=== PATIENT | male | born 1960 | race Caucasian/White ===

== ENCOUNTER 2023-04-02 13:43 | Outpatient (CLI) | payer MEDICARE, SELFPAY ==
--- NOTE | ~2023-04-02 | CT_ITS ---
CT Scan of the Chest without Contrast: Clinical Indication: Lung cancer screening, personal history of nicotine dependence Technique: Contiguous sections were acquired throughout the chest without intravenous contrast. Dose reduction technique was used on this scan by utilizing automated exposure control and iterative recon struction technique. The dose-length product (DLP) was 79.95 mGy-cm. Findings: There is no evidence of any significant mediastinal, hilar or axillary lymphadenopathy. There are mil d coronary artery calcifications. There is no evidence of pleural or pericardial effusion. 2 mm right lower lobe pulmonary nodule present. Images through the upper abdomen reveal no abnormalit ies. There is a prominent left flank lipoma. Impression: Lung RADS 2: Benign appearance. 12 month follow-up screening CT advised. Reviewed, dictated and finalized at location . Impression: Lung RADS 2: Benign appearance. 12 month follow-up screening CT advised.
== END 2023-04-02 13:44 | disposition home or self-care (01) ==
PROVIDERS: PCP Nurse Practitioner Family; Visit Provider Nurse Practitioner Family
DX: Z12.2 Encounter for screening for malignant neoplasm of respiratory organs (principal); Z87.891 Personal history of nicotine dependence
CPT/HCPCS: 71271

== ENCOUNTER 2024-12-07 08:09 | Outpatient (CLI) | payer MEDICARE, SELFPAY ==
--- NOTE | ~2024-12-07 | NM_ITS ---
EXAMINATION: NM emerson stress w perfusion DATE: 12/07/2024 12:16 INDICATION: Chest pain TECHNIQUE: Rest images were obtained following intravenous administration of 11 mCi Tc99m tetrofosmin (Myoview). The patient was infused intravenously with Lexiscan (Regadenoson). Then, 34.6 mCi Tc99m t etrofosmin (Myoview) was administered intravenously, and stress images were obtained initially in the supine position with repeat post stress images obtained in the prone position. Data was reconstructe d into short axis and horizontal and vertical long axis SPECT images. Gated SPECT images were also ob tained. COMPARISON: None. FINDINGS: There is a large, moderate to severe fixed perfusion defect consistent with infarct involvi ng the apical, apical lateral, mid inferolateral, apical inferior, mid inferior, apical septal and mi d inferoseptal segments. The apparent reversibility in the mid inferoseptal and mid inferior segments appears artifactual due to adjacent gastric activity. There is normal left ventricular chamber size, wall motion and ejection fraction. Left ventricular ejection fraction measures 53%. IMPRESSION: 1. Large, moderate to severe infarct involving primarily the circumflex and right coronary artery vas cular distributions as detailed above. No definitive reversible ischemia. 2. Left ventricular ejection fraction measuring 53%. Reviewed, dictated and finalized at location A. IMPRESSION: 1. Large, moderate to severe infarct involving primarily the circumflex and rig ht coronary artery vascular distributions as detailed above. No definitive reve rsible ischemia. 2. Left ventricular ejection fraction measuring 53%.
--- OUTSIDE RECORDS SUMMARY | 2024-12-07 08:16 | XMS_ITS | Encounter Summary ---
Author Organization [facility] Address 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 Gender Identity Not on file Sexual Orientation Not on file documented as of this encounter Plan of Treatment Not on file documented as of this encounter Visit Diagnoses Diagnosis Spinal stenosis, unspecified region other than cervical- Primary documented in this encounter Additional Health Concerns Infection Onset Date Last Indicated Resolved Time R/O COVID-19 10/29/2020 10/29/2020 10/29/2020 6:43 AM CDT documented as of this encounter Care Teams Boom Master Relationship Specialty Start Date End Date Christos Estrada MD [address] [place] [phone] PCP - General Family Practice 07/01/23 documented as of this encounter
--- OUTSIDE RECORDS SUMMARY | 2024-12-07 08:16 | XMS_ITS | Encounter Summary ---
Author Organization [facility] Address [address] [place] [address] Care Team Providers Care Supervisor Assembly Name Role Phone Christos Estrada MD Primary Care Provider [phone] Encounter Details Date Type Department Care Team (Late st Contact Info) Description 08/28/2000 Outpatient Historical [facility] Primary Care Internal Medicine 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
--- OUTSIDE RECORDS SUMMARY | 2024-12-07 08:16 | XMS_ITS | Encounter Summary ---
Author Organization [facility] Address [address] [place] [address] Care Team Providers Care Locomotive Crane Operator Helper Name Role Phone Christos Estrada MD Primary Care Provider Encounter Details Date Type Department Care Team (Late st Contact Info) Description 10/23/2000 Outpatient Historical [facility] Primary Care Internal Medicine 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
--- OUTSIDE RECORDS SUMMARY | 2024-12-07 08:16 | XMS_ITS | Clinical Summary ---
Author Organization [facility] Address [address] [place] [phone] Phone Care Team Providers Care Inventory Manager Name Role Phone Christos Estrada MD Primary Care Provider [phone] Allergies No known active allergies Medications aluminum hydroxide-magnesiu m carbonate (Gaviscon Extra Strength) 160-105 mg Tablet, Chewable Take 1-2 Tablets by mouth 4 times daily as needed for Indigestion. 11/06/19 21 Active OneTouch Delica Plus Lancet 33 gauge USE TO CHECK BLOOD SUGAR TWICE DAILY (E11.9) ONE TOUCH DELICA PLUS 07/22/20 22 Active Blood-Glucose Meter (OneTouch Verio Reflect Meter) USE TO TEST BLOOD SUGARS TWICE DAILY 1 Each 08/20/19 23 Active aspirin 81 mg tablet,delayed release Take 81 mg by mouth daily. Active atorvastatin (LIPITOR) 40 mg tabletIndications: Mixed hyperlipidemia TAKE 1 TABLET BY MOUTH EVERYDAY AT BEDTIME 30 Tablet 03/17/20 23 Active omeprazole (PriLOSEC) 20 mg Capsule, Delayed Release(E.C.) Take 1 Capsule (20 mg) by mouth daily. Please call to schedule appointment with New provider prior to next refill. 90 Capsule 03/23/20 23 Active blood sugar diagnostic (OneTouch Verio test strips) Strip Test Blood Sugar Two Times Daily Before Morning Meal And Evening Meal 100 Strip 5 04/27/20 23 Active meloxicam (Mobic) 7.5 mg tabletIndications: Acute right-sided low back pain with right-sided sciatica Take 1 Tablet (7.5 mg) by mouth daily. 28 Tablet 12/23/19 24 Active tiZANidine (ZANAFLEX) 4 mg TabletIndications: Chronic midline low back pain with right-sided sciatica TAKE 1 TABLET (4 MG) BY MOUTH 2 TIMES DAILY 180 Tablet 12/24/19 24 Active traZODone (DESYREL) 50 mg tabletIndications: Primary insomnia take 1 tablet by mouth everyday at bedtime 90 Tablet 1 12/28/19 24 Active DULoxetine (CYMBALTA) 60 mg Capsule, Delayed Release(E.C.)Indic ations:Chronic midline low back pain with right-sided sciatica take 1 capsule by mouth every day 90 Capsule 1 12/28/19 24 Active tamsulosin (FLOMAX) 0.4 mg capsuleIndications :BPH with obstruction/lower urinary tract symptoms take 2 capsules by mouth every day 180 Capsule 1 12/28/19 24 Active metoprolol succinate (TOPROL XL) 50 mg Extended Release 24 hour tabletIndications: Primary hypertension Take 1 Tablet (50 mg) by mouth daily. 90 Tablet 1 12/28/19 24 Active metFORMIN (GLUCOPHAGE) 1,000 mg tabletIndications: Type 2 diabetes mellitus without complication, without long-term current use of insulin ([facility]) take 1 tablet by mouth twice a day with meals 180 Tablet 2 04/08/20 24 Active Active Problems Patient Care Coordination No te Formatting of this note migh t be different from the original. GI- Dr Ángel Mitchell Pilot Plant Technician-Dr Chuck Rothman-[place] Problem Noted Date Diagnosed Date Gastroesophageal reflux disease without esophagi tis 12/30/2023 BPH with obstruction/lower urinary tract symptom s 07/01/2023 Primary insomnia 07/01/2023 Scoliosis of thoracolumbar region 07/01/2023 History of hemorrhagic stroke with residual madeleine paresis 07/01/2023 Patent foramen ovale with right to left shunt Left sided numbness 12/17/2022 Type 2 diabetes mellitus wit hout complication, without long-term current use of insulin 12/17/2022 Dental caries into pulp 11/14/2022 Chronic midline low back pain with right-sided s ciatica 07/16/2022 Primary hypertension 07/16/2022 Mixed hyperlipidemia 06/16/2019 TIA (transient ischemic attack) 12/22/2018 Nystagmus 01/17/2018 History of colon polyps 08/07/2017 Vertical strabismus of right eye 04/27/2017 Horizontal nystagmus 04/27/2017 History of cerebellar hemorrhage 04/26/2017 Tobacco use 03/19/2017 Resolved Problems Problem Noted Date Diagnosed Date Resolved Date Chest pressure 12/17/2022 12/24/2022 Stroke 12/17/2022 12/24/2022 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 Patient denies any claudication or foot ulcers. Foot exam was within normal limits . 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 03/19/2017 06/27/2020 Cigarette nicotine dependence, uncomplicated 09/26/2019 Postural dizziness with presyncope 09/26/2019 Transient cerebral ischemia 09/26/2019 Dizziness and giddiness 08/2019 Syncope and collapse 020 Hemispheric carotid artery syndrome 09/26/2019 Encounters Date Type Department Care Team Description 10/05/2024 External Device Data ST[facility] ABSTRACTION Provider, Abstract 10/04/2024 External Device Data ST[facility] ABSTRACTION Provider, Abstract 10/03/2024 External Device Data ST[facility] ABSTRACTION Provider, Abstract from Last 3 Months Immunizations Immunization Administration Dates Next Due (ADACEL/BOOSTRIX)(10 YR UP) TDAP VACCINE, 0.5ML, IM 01/18/2015 (PFIZER)(12 YR UP) COVID-19 VACCINE - EMERGENCY USE AUTHORIZATION, MRNA, [id number](PF) 30 MCG/0.3 ML IM SUSP 11/20/2020,10/30/2020 (PNEUMOVAX 23)(50 YRS UP) PN EUMOCOCCAL POLYSACCHARIDE (PPV23) 0.5 ML, IM 06/16/2019 (PREVNAR 20)(6 WKS UP) PNEUM OCOCCAL CONJUGATE VACCINE 20-VALENT (PCV20), POLYSACCHARIDE [id number] CONJUGATE, ADJUVANT 0.5 ML (PF) IM 12/18/2022 (Pfizer Bivalent)(12 Yr Up) COVID-19 Vaccine - Emergency Use Authorization, MRNA, Lnp-S(Pf) 30 Mcg/0.3 Ml Susp 08/07/2022 INFLUENZA VACCINE QUADRIVALE NT 6 MOS UP PF IM 07/16/2022,06/27/2020,06/16/2019 Influenza Seasonal Unspecifi ed Formulation IM 07/16/2022,06/27/2020,06/16/2019 Family History Medical History Relation Name Comments Unknown Brother 1 Unknown Brother 2 Unknown Brother 3 Unknown Brother 4 Other Father Dad mva Diabetes Maternal Grandfather Grandma Diabetes Maternal Grandmother Mrs Gonzales Diabetes Mother Mom Crohn's Disease Son Amblyopia Neg Hx Blindness Neg Hx Detachment/Tears Neg Hx Glaucoma Neg Hx Macular Degen Neg Hx Strabismus Neg Hx Relation Name Status Comments Brother 1 Alive Brother 2 Alive Brother 3 Alive Brother 4 Alive Daughter Alive Father Dad Maternal Grandfather Grandma Maternal Grandmother Mrs Gonzales Mother Mom Alive Son Alive Social History Tobacco Use Types Packs/Day Years Used Date Smoking Tobacco: Every Day Cigarettes 0.5 25 Smokeless Tobacco: Never Tobacco Cessation:Ready to Q uit: Not Asked; Counseling Given: Not Answered Comments:None Alcohol Use Standard Drinks/Week Comments Not Currently 0 (1 standard drink = 0.6 oz pur e alcohol) last drank ETOH 03/18/17 Financial Resource Strain Answer Date R ecorded How hard is it for you to pa y for the very basics like food, housing, medical care, and heating? Not hard at all 09/18/2021 Food Insecurity Answer Date Recorded In the past 12 months, have you worried that your food would run out before you had money to buy more? Never true 2021 Ran Out of Food in the Last Year Not on file 09/18/2021 Transportation Needs Answer Date Record ed In the past 12 months, has l ack of transportation kept you from medical appointments or from getting medications? No 09/18/2021 Lack of Transportation (Non-Medical) Not on file 09/18/2021 Feeling Safe Answer Date Recorded Are you in a relationship wi th someone who hurts you emotionally and/or physically? 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, [employer], 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 Not on file Not on file Not on file Last Filed Vital Signs Vital Sign Reading Time Taken Comments Blood Pressure 110/78 12/28/2023 11:09 AM CDT Pulse 64 12/28/2023 11:09 AM CDT Temperature 36.9 C (98.4 F) 12/28/2023 11:09 AM CDT Respiratory Rate 18 12/28/2023 11:09 AM CDT Oxygen Saturation 93% 12/28/2023 11:09 AM CDT Inhaled Oxygen Concentration - - Weight 71.7 kg (158 lb) 12/28/2023 11:09 AM CDT Height 167.6 cm (5' 6 ) 12/28/2023 11:09 AM CDT Body Mass Index 25.5 12/28/2023 11:09 AM CDT Plan of Treatment Health Maintenance Due Date Last Done Comments FIT-DNA Q 3 years 2006 FIT/FOBT Q 1 year 2006 08/16/1999 Flex Sig/CT Colonography Q 5 years 2006 ZOSTER VACCINE (1 of 2) 2011 DIABETES ANNUAL RETINAL EXAM 02/25/202407/2022, 07/05/2020, 07/05/2020, Additional history exists INFLUENZA VACCINE (#1) 2024 3, 07/16/2022, 07/16/2022, Additional history exists COVID-19 Vaccine ( - 2023-2 5 season) 2024 08/07/2022, 11/20/2020, 10/30/2020 DIABETES HBA1C Q 6 MONTHS 06/28/20242023, 07/01/2023, 12/17/2022, Additional history exists DIABETES ANNUAL FOOT EXAM 07/01/2024 07/01/2023, 12/2022 Medicare Advantage (NE) Preventative Visit/Annual Wellness Visit 07/27/2024 12/28/2023, 09/18/2021, 10/08/2020 DIABETES MICROALBUMIN ANNUAL SCREEN 09/04/2024 09/04/2023, 07/01/2023 LDL CHOLESTEROL ANNUAL 12/27/2024 4, 12/18/2022, 07/16/2022, Additional history exists DTAP/TDAP/TD VACCINES (2 - T d or Tdap) 01/18/2025 01/18/2015 COLORECTAL SCREENING 10/08/2030 10/09/2023, 10/09/2023, 08/05/2017 Colorectal Cancer Screening 10/08/2030 RSV VACCINE (60+ or ) (1 - 1-dose 75+ series) 2036 Procedures Procedure Name Priority Date/Time Associated Diagnosis Comments LIPID PANEL Routine 12/28/2023 11:44 AM CDT Mixed hyperlipidemia HEMOGLOBIN A1C Routine 12/28/2023 11:44 AM CDT COLONOSCOPY REPORT 10/09/2023 9: 28 AM CDT MICROALBUMIN/CREATI NINE RATIO, RANDOM UR Routine 09/04/2023 9:57 AM MANAGER EVENT Primary hypertension Type 2 diabetes mellitus without complication, without long-term current use of insulin ([facility]) HM DIABETES EYE EXAM Routine 02/24/2023 2:14 PM CDT from Last 3 Months or Most Recently Relevant to Health Maintenance Results * (ABNORMAL) HEMOGLOBIN A1C (12/28/2023 11:44 AM CDT) HEMOGLOBIN A1C 6.7(H) <5.7 % of total Hgb [facility] Comment: For someone without known diabetes, a hemoglobin A1c value of 6.5% or greater indicates that they may have diabetes and this should be confirmed with a follow-up test. For someone with known diabetes, a value <7% indicates that their diabetes is well controlled and a value greater than or equal to 7% indicates suboptimal control. A1c targets should be individualized based on duration of diabetes, age, comorbid conditions, and other considerations. Currently, no consensus exists regarding use of hemoglobin A1c for diagnosis of diabetes for children. ESTIMATED AVERAGE GLUCOSE (MG/DL) 146 mg/dL [facility] ESTIMATED AVERAGE GLUCOSE (MMOL/L) 8.1 mmol/L [facility] goldstein Norbert Comment: This test was performed on the Waylon jonathon c503 platform. Effective 10/12/23, a change in test platforms from the [employer] Economist to the Waylon jonathon c503 may have shifted HbA1c results compared to historical results. Based on laboratory validation testing conducted at [facility], the Waylon platform relative to the Marin platform had an average increase in HbA1c value of < or = 0.3%. This difference is within accepted variability established by the National Glycohemoglobin Standardization Program. Note that not all individuals will have had a shift in their results and direct comparisons between historical and current results for testing conducted on different platforms is not recommended. Test Performed at: [place] [place] [address] [address] [place] [address] Arielle Flowers Vo Blood 12/28/2023 11:4 4 AM CDT 12/29/2023 2:16 AM CDT us Myriam STOKES CHEMISTRY ORDERABLES Final Re sult [facility] [phone] [place] [address] [address] [place] [address] * LIPID PANEL (12/28/2023 11:44 AM CDT) Pathologist [facility] CHOLESTEROL 137 <200 mg/dL [facility]ATOSOFTKarine goldstein Norbert HDL 44 > OR = 40 mg/dL [facility] Toussaint TRIGLYCERIDE 92 <150 mg/dL [facility] Norbert LDL CALCULATED 75 mg/dL (calc) [facility] Norbert Comment: Reference range: <100 Desirable range <100 mg/dL for primary prevention; <70 mg/dL for patients with CHD or diabetic patients with > or = 2 CHD risk factors. LDL-C is now calculated using the Nicole calculation, which is a validated novel method providing better accuracy than the Friedewald equation in the estimation of LDL-C. Obi BAIRES et al. COLEEN. 2013;310(30): 6031-9729 (http://education.[employer]/faq/NKU359) CHOL/HDL RATIO 3.1 <5.0 (calc) [facility]ine Toussaint NON-HDL CHOLESTEROL 93 <130 mg/dL (calc) [facility] Comment: For patients with diabetes plus 1 major ASCVD risk factor, treating to a non-HDL-C goal of <100 mg/dL (LDL-C of <70 mg/dL) is considered a therapeutic option. Test Performed at: [place] [address] [address] [place] [address] [facility] Blood 12/28/2023 11:4 4 AM CDT 12/29/2023 2:16 AM CDT us Myriam STOKES CHEMISTRY ORDERABLES Final Re sult [facility] [phone] [place] [address] [address] [place] [address] * COLONOSCOPY REPORT (10/09/2023 9:28 AM CDT) Narrative Procedure Note Ángel Mitchell MD - 10/09/2023 9:28 AM CDT [facility] Patient Name: Albert Evans Procedure Date: 10/09/2023 Date of : 1960 Admit Type: Outpatient Age: 63 Attending MD: Ángel Mitchell MD, Procedure: Colonoscopy Indications: High risk colon cancer surveillance: Personal history of colonic polyps Providers: Ángel Mitchell MD Referring MD: Christos Estrada MD Requesting Provider: Medicines: Monitored Anesthesia Care Complications: No immediate complications. Procedure: After I obtained informed consent, the scope was passed under direct vision. Throughout the procedure, the patient's blood pressure, pulse, and oxygen saturations were monitored continuously. The Colonoscope was introduced through the anus and advanced to the terminal ileum. The colonoscopy was performed without difficulty. The patient tolerated the procedure well. The quality of the bowel preparation was excellent. The terminal ileum, ileocecal valve, appendiceal orifice, and rectum were photographed. Findings: The perianal and digital rectal examinations were normal. The colon (entire examined portion) appeared normal. The terminal ileum appeared normal. Multiple small-mouthed diverticula were found in the sigmoid colon and descending colon. Impression: - The entire examined colon is normal. - The examined portion of the ileum was normal. - Diverticulosis in the sigmoid colon and in the descending colon. - No specimens collected. Recommendation: - Resume previous diet. - Continue present medications. - Repeat colonoscopy in 7 years for surveillance. Ángel Mitchell MD 10/09/2023 9:28:31 AM This report has been signed electronically. Number of Addenda: 0 Estimated Blood Loss: Estimated blood loss: none. Ángel Mitchell MD GI PROCEDURE ORDERABL ES Final Result * (ABNORMAL) MICROALBUMIN/CREATININE RATIO, RANDOM UR (09/04/2023 9:57 AM MANAGER EVENT) Creatinine, Urine 135 20 - 320 mg/dL [facility] MICROALBUMIN, URINE 8.7 See Note: mg/dL [facility] Comment: Reference Range: Reference Range Not established MICROALBUMIN/CREAT RATIO, UR 64(H) <30 mcg/mg creat [facility] Comment: The ADA defines abnormalities in albumin excretion as follows: Albuminuria Category Result (mcg/mg creatinine) Normal to Mildly increased <30 Moderately increased 30-299 Severely increased > OR = 300 The ADA recommends that at least two of three specimens collected within a 3-6 month period be abnormal before considering a patient to be within a diagnostic category. Test Performed at: [facility] [address] [place] [address] Arielle Gill MD Urine URINE SPECIMEN OBTAINED BY CLEAN CATCH PROCEDURE / Unknown 09/04/2023 9:57 AM MANAGER EVENT 09/05/2023 4:54 AM MANAGER EVENT us Christos Estrada MD URINE ORDERABLES Final Result [facility] [phone] [place] [facility] [address] [place] [address] * DIABETES EYE EXAM (02/24/2023 2:14 PM CDT) us Abstract Provider HEALTH MAINTENANCE Edited Resu lt - Final Performing Organization Address City/[facility]/ZIP Co de Phone Number [facility] CLIA# [id number] [address] [place] [phone] from Last 3 Months or Most Recently Relevant to Health Maintenance Insurance [place]ID [place] [employer] RX Member Subscriber Plan / Payer (Ef fective 2022-Present) Name:Albert Evans Relation to Subscriber:Self Name:Albert Evans Subscriber ID:Not on file Payer ID:Not on file Group ID:[id number] Type:RX Medicare Part D [facility] [place] [place] Advance Directives For more information, please contact: [phone] * Full Code (Latest Code Status on File) Date Activated Date Inactivated Comments 10/09/2023 8:46 AM 10/09/2023 11:59 AM * Full Code Date Activated Date Inactivated Comments 08/31/2023 2:25 PM 09/01/2023 6:52 PM * Full Code Date Activated Date Inactivated Comments 12/17/2022 7:47 PM 12/18/2022 6:02 PM * Full Code Date Activated Date Inactivated Comments 01/03/2020 1:45 PM 01/04/2020 1:08 PM * Full Code Date Activated Date Inactivated Comments 12/15/2019 9:06 AM 12/15/2019 2:19 PM Care Teams Inventory Manager Relationship Specialty Start Date End Date Christos Estrada MD [address] [place], [place] [phone] PCP - General Family Practice 07/01/23
--- OUTSIDE RECORDS SUMMARY | 2024-12-07 08:16 | XMS_ITS | Encounter Summary ---
Author Organization [facility] Address 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
--- OUTSIDE RECORDS SUMMARY | 2024-12-07 08:16 | XMS_ITS | Encounter Summary ---
Author Organization [employer] Address 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 Gender Identity Not on file Sexual Orientation Not on file documented as of this encounter Plan of Treatment Not on file documented as of this encounter Visit Diagnoses Diagnosis Cervical spondylosis without myelopathy- Primary documented in this encounter Additional Health Concerns Infection Onset Date Last Indicated Resolved Time R/O COVID-19 10/29/2020 10/29/2020 10/29/2020 6:43 AM CDT documented as of this encounter Care Teams Head Charrer Relationship Specialty Start Date End Date Christos Estrada MD [address] [place] [phone] PCP - General Family Practice 07/01/23 documented as of this encounter
--- OUTSIDE RECORDS SUMMARY | 2024-12-07 08:16 | XMS_ITS | Encounter Summary ---
Author Organization [employer] Address 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 Gender Identity Not on file Sexual Orientation Not on file documented as of this encounter Plan of Treatment Not on file documented as of this encounter Visit Diagnoses Diagnosis Internal hemorrhoids with other complication- Primary documented in this encounter Additional Health Concerns Infection Onset Date Last Indicated Resolved Time R/O COVID-19 10/29/2020 10/29/2020 10/29/2020 6:43 AM CDT documented as of this encounter Care Teams Ripsaw Grader Relationship Specialty Start Date End Date Christos Estrada MD [address] [place] [phone] PCP - General Family Practice 07/01/23 documented as of this encounter
--- OUTSIDE RECORDS SUMMARY | 2024-12-07 08:16 | XMS_ITS | Encounter Summary ---
Author Organization [employer] [facility] Address [address] [place] [address] Care Team Providers Care Soda Fountain Manager Name Role Phone Christos Estrada MD Primary Care Provider [phone] Encounter Details Date Type Department Care Team (Latest Contact Info) Description 10/18/2000 Outpatient Historical [facility] Antoine Garnica MD [address] [place] [address] Emergency [place], [place] [id number] Open wound of hip and thigh, without mention of complication (Primary Dx) Social History Tobacco Use Types Packs/Day Years Used Date Smoking Tobacco: Never Assessed Sex and Gender Information Value Date Recorded Sex Assigned at Not on file 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 Gender Identity Not on file Sexual Orientation Not on file documented as of this encounter Plan of Treatment Not on file documented as of this encounter Visit Diagnoses Diagnosis Open wound of hip and thigh, without mention of complication- Primary documented in this encounter Additional Health Concerns Infection Onset Date Last Indicated Resolved Time R/O COVID-19 10/29/2020 10/29/2020 10/29/2020 6:43 AM CDT documented as of this encounter Care Teams Soda Fountain Manager Relationship Specialty Start Date End Date Christos Estrada MD [address] [place] [phone] PCP - General Family Practice 07/01/23 documented as of this encounter
--- OUTSIDE RECORDS SUMMARY | 2024-12-07 08:16 | XMS_ITS | Data Portability ---
Author Organization STEVE ANKITAAdis Sebastian [facility] Address [address] [place] [address] Care Team Providers Care Director Credit Risk Name Role Phone CARMELITA JACK Primary Care Provider Unavailabl e Assessment No assessment recorded. Plan of Treatment Reminders Order Date Submit Date Provider Last Modified By Organization Details Last Modified Time Details Appointments None recorded . Lab HbA1c (hemoglo bin A1c), blood 2024 025 LELAND In-Office Order, Internal Use Only DO Not Attach Compendium DO Not Attach Compendium, Do Not Delete/merge, [id number] 5 17:57:54 PSA, total, serum or plasma 2024 025 [email or web address] Facila [facility], [address] [place] [address] [address], [address], 5 12:03:14 CMP, serum or plasma 2024 025 [email or web address] [facility], [address] [place] [address] [address], [address], 5 12:03:14 HbA1c (hemoglo bin A1c), blood 2023 024 LELAND [facility], [address] [place] [address] [address], [address], 4 08:22:06 lipid panel, serum 2023 024 LELAND [facility], [address] [facility], [place], [address], 4 08:22:04 CMP, serum or plasma 2023 024 JORDAN [facility], [address] [facility], [place], [address], 4 08:22:05 CBC w/ auto diff 2023 024 LELAND [facility], [address] [facility], [place], [address], 4 08:22:07 TSH, ultra-se nsitive, serum 2023 024 LELAND [facility], [address] [facility], [place], [address], 4 08:22:06 Referral diabetic ophthalm ology referral 2024 025 [email or web address] Lina Garcia, [address] , [place], [address], 5 15:31:06 cardiolo gist referral 2024 025 [email or web address] Kade Brennan MD, [address], [place], [address], 5 10:19:[address] referral 2024 025 Simran Viramontes DPM, [address] [place], [address], 5 15:31:07 urologis t referral 2024 025 [email or web address] [facility], [address] [facility], [facility] [address], [place], [address], 5 15:31:06 Procedures None recorded . Surgeries None recorded . Imaging LDCT, chest, for lung cancer screenin g [email or web address] (Imaging), [address] [facility] [address], [place], [address], 5 15:04:16 Medication Orders tamsulos in 0.4 mg capsule 2024 025 [id number] [address] [place], [address], 5 15:12:11 duloxeti ne 60 mg capsule, delayed release 2023 [id number], [address] [place], [address], 4 10:18:06 tamsulos in 0.4 mg capsule 2023 [id number], [address] [place], [address], 10:18:07 Patient TargetsNo targets recorded. Patient Instructions Encounter Date Encounter Id Patient Instructions Last Modified By Organization Details Last Modified Time 03/25/2024 [id number] f/u in 2 month nsuthan Not available 03/25/2024 10:53:20 05/26/2024 [id number] f/u in 3 month nsuthan Not available 05/26/2024 10:07:10 09/15/2024 [id number] pneumococcal polysaccharide vaccine: care instructions [email or web address] Not available 09/15/2024 14:56:45 tetanus and diphtheria booster: care instructions [email or web address] Not available 09/15/2024 14:56:45 substance use disorder: care instructions [email or web address] Not available 09/15/2024 15:13:49 Quitting Tobacco : Care Instructions Not available 09/15/2024 14:58:09 Plan of care has been discussed with patient including expected therapeutic benefits and potential side effects of prescribed medication and treatments. Patient verbalizes understanding and is in agreement with the plan of care. Patient was instructed to keep all scheduled appointments and contact the clinic for any additional problems. Health Maintenance: - CRC screening (45-75): September 2023-colonoscopy, repeat in 7 years - Osteoporosis screening: Due at 65. - Lipid screening (>45 unless additional risk factors): 03/25/24 - HIV : Declined - HepC: Declined -Eye exam: unknown -Dental Exam: 2023 - Immunizations: - Influenza: Due. obtained at [facility] - Prevnar 20: Due at 65. - Tdap/Td ([id number]): ordered - Zoster (>60):Due at 60. - COVID-19: Declined - AAA screening (65-75): Due at 65. - Prostate ca screening (>50 or >45 if AA, +FH; d/w patient): Due at 50. 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 Operator Referral for Skin lesion Referring Physician: Carmelita Jack [facility], Encounter Date: 09/15/2024 Results Created Date Observation Date Name Description Value Unit Range Abnormal Flag Note LastModifiedBy Organization Detail LastModifiedTime 03/25/20 24 03/26/2024 LIPID PANEL cholesterol, total 120 mg/dL 100-19 9 Not Available [facility] ([facility]) [address] [facility], [place], [address], 03/26/2024 08:22:04 03/25/20 24 03/26/2024 LIPID PANEL triglyceride s 74 mg/dL 0-149 Not Available [facility] ([facility]) [address] [place], [address], 03/26/2024 08:22:04 03/25/20 24 03/26/2024 LIPID PANEL HDL cholesterol 46 mg/dL >39 Not Available [facility] ([facility]) [address] [place], [address], 03/26/2024 08:22:04 03/25/20 24 03/26/2024 LIPID PANEL VLDL cholesterol brunilda 15 mg/dL 5-40 Not Available [facility] ([facility]) [address] [place], [address], 03/26/2024 08:22:04 03/25/20 24 03/26/2024 LIPID PANEL LDL chol calc ([facility]) 59 mg/dL 0-99 Not Available [facility] ([facility]) [address] [place], [address], 03/26/2024 08:22:04 03/25/20 24 03/26/2024 COMP. METAB OLIC PANEL (14) glucose 93 mg/dL 70-99 Not Available [facility] ([facility]) [address] [place], [address], 03/26/2024 08:22:05 03/25/20 24 03/26/2024 COMP. METAB OLIC PANEL (14) BUN 11 mg/dL 8-27 Not Available [facility] ([facility]) [address] [place], [address], 03/26/2024 08:22:05 03/25/20 24 03/26/2024 COMP. METAB OLIC PANEL (14) creatinine 1.04 mg/dL 0.76-1 .27 Not Available [facility] ([facility]) [address] [place], [address], 03/26/2024 08:22:05 03/25/20 24 03/26/2024 COMP. METAB OLIC PANEL (14) eGFR 81 mL/mi n/1.7 3 >59 Not Available [facility] ([facility]) [address] [place], [address], 03/26/2024 08:22:05 03/25/20 24 03/26/2024 COMP. METAB OLIC PANEL (14) BUN/creatini ne ratio 11 10-24 Not Available [facility] ([facility]) [address] [place], [address], 03/26/2024 08:22:05 03/25/20 24 03/26/2024 COMP. METAB OLIC PANEL (14) sodium 141 mmol/ L 134-14 4 Not Available [facility] ([facility]) [address] [place], [address], 03/26/2024 08:22:05 03/25/20 24 03/26/2024 COMP. METAB OLIC PANEL (14) potassium 4.5 mmol/ L 3.5-5. 2 Not Available [facility] ([facility]) [address] [place], [address], 03/26/2024 08:22:05 03/25/20 24 03/26/2024 COMP. METAB OLIC PANEL (14) chloride 102 mmol/ L 96-106 Not Available [facility] ([facility]) [address] [place], [address], 03/26/2024 08:22:05 03/25/20 24 03/26/2024 COMP. METAB OLIC PANEL (14) carbon dioxide, total 25 mmol/ L 20-29 Not Available [facility] ([facility]) [address] [facility] [place], [address], 03/26/2024 08:22:05 03/25/20 24 03/26/2024 COMP. METAB OLIC PANEL (14) calcium 9.8 mg/dL 8.6-10 .2 Not Available [facility] ([facility]) [address] [facility] [place], [address], 03/26/2024 08:22:05 03/25/20 24 03/26/2024 COMP. METAB OLIC PANEL (14) protein, total 6.9 g/dL 6.0-8. 5 Not Available [facility] ([facility]) [address] [facility], [place], [address], 03/26/2024 08:22:05 03/25/20 24 03/26/2024 COMP. METAB OLIC PANEL (14) albumin 4.6 g/dL 3.9-4. 9 Not Available [facility] ([facility]) [address] [place], [address], 03/26/2024 08:22:05 03/25/20 24 03/26/2024 COMP. METAB OLIC PANEL (14) globulin, total 2.3 g/dL 1.5-4. 5 Not Available [facility] ([facility]) [address] [place], [address], 03/26/2024 08:22:05 03/25/20 24 03/26/2024 COMP. METAB OLIC PANEL (14) bilirubin, total 0.5 mg/dL 0.0-1. 2 Not Available [facility] ([facility]) [address] [facility], [place], [address], 03/26/2024 08:22:05 03/25/20 24 03/26/2024 COMP. METAB OLIC PANEL (14) alkaline phosphatase 74 IU/L 44-121 Not Available [facility] ([facility]) [address] [place], [address], 03/26/2024 08:22:05 03/25/20 24 03/26/2024 COMP. METAB OLIC PANEL (14) AST (SGOT) 17 IU/L 0-40 Not Available [facility] ([facility] [address] [facility] [place], [address], 03/26/2024 08:22:05 03/25/20 24 03/26/2024 COMP. METAB OLIC PANEL (14) ALT (SGPT) 12 IU/L 0-44 Not Available [facility] ([facility]) [address] [facility] [place], [address], 03/26/2024 08:22:05 03/25/20 24 03/26/2024 TSH RFX ON ABNOR MAL TO FREE T4 TSH 0.766 uIU/m L 0.450- 4.500 Not Available [facility] ([facility]) [address] [facility], [place], [address], 03/26/2024 08:22:05 03/25/20 24 03/26/2024 HEMOG LOBIN A1C hemoglobin A1C 6.2 % 4.8-5. 6 above high normal Predi abete s: 5.7 - 6.4 Diabe nat: >6.4 Glyce meg contr ol for adult s with diabe nat: <7.0 Not Available [facility] ([facility]) [address] [facility], [place], [address], 03/26/2024 08:22:06 03/25/20 24 03/26/2024 CBC WITH DIFFE RENTI AL/PL ATELE T WBC 6.9 x10e3 /uL 3.4-10 .8 Not Available [facility] ([facility]) [address] [facility], [place], [address], 03/26/2024 08:22:07 03/25/20 24 03/26/2024 CBC WITH DIFFE RENTI AL/PL ATELE T RBC 5.21 x10e6 /uL 4.14-5 .80 Not Available [facility] ([facility]) [address] [facility], [place], [address], 03/26/2024 08:22:07 03/25/20 24 03/26/2024 CBC WITH DIFFE RENTI AL/PL ATELE T hemoglobin 15.9 g/dL 13.0-1 7.7 Not Available [facility] ([facility]) [address] [place], [address], 03/26/2024 08:22:07 03/25/20 24 03/26/2024 CBC WITH DIFFE RENTI AL/PL ATELE T hematocrit 49.0 % 37.5-5 1.0 Not Available [facility] ([facility]) [address] [facility], [place], [address], 03/26/2024 08:22:07 03/25/20 24 03/26/2024 CBC WITH DIFFE RENTI AL/PL ATELE T MCV 94 fL 79-97 Not Available [facility] ([facility]) [address] [facility], [place], [address], 03/26/2024 08:22:07 03/25/20 24 03/26/2024 CBC WITH DIFFE RENTI AL/PL ATELE T MCH 30.5 pg 26.6-3 3.0 Not Available [facility] ([facility]) [address] [facility], [place], [address], 03/26/2024 08:22:07 03/25/20 24 03/26/2024 CBC WITH DIFFE RENTI AL/PL ATELE T MCHC 32.4 g/dL 31.5-3 5.7 Not Available [facility] ([facility]) [address] [facility], [place], [address], 03/26/2024 08:22:07 03/25/20 24 03/26/2024 CBC WITH DIFFE RENTI AL/PL ATELE T RDW 13.1 % 11.6-1 5.4 Not Available [facility] ([facility]) [address] [facility], [place], [address], 03/26/2024 08:22:07 03/25/20 24 03/26/2024 CBC WITH DIFFE RENTI AL/PL ATELE T platelets 384 x10e3 /uL 150-45 0 Not Available [facility] ([facility]) [address] [facility], [place], [address], 03/26/2024 08:22:07 03/25/20 24 03/26/2024 CBC WITH DIFFE RENTI AL/PL ATELE T neutrophils 50 % notest ab. Not Available [facility] ([facility]) [address] [facility], [place], [address], 03/26/2024 08:22:07 03/25/20 24 03/26/2024 CBC WITH DIFFE RENTI AL/PL ATELE T lymphs 34 % notest ab. Not Available [facility] ([facility]) [address] [facility], [place], [address], 03/26/2024 08:22:07 03/25/20 24 03/26/2024 CBC WITH DIFFE RENTI AL/PL ATELE T monocytes 8 % notest ab. Not Available [facility] ([facility]) [address] [facility] [place], [address], 03/26/2024 08:22:07 03/25/20 24 03/26/2024 CBC WITH DIFFE RENTI AL/PL ATELE T eos 6 % notest ab. Not Available [facility] ([facility]) [address] [facility], [place], [address], 03/26/2024 08:22:07 03/25/20 24 03/26/2024 CBC WITH DIFFE RENTI AL/PL ATELE T basos 2 % notest ab. Not Available [facility] ([facility]) [address] [place], [address], 03/26/2024 08:22:07 03/25/20 24 03/26/2024 CBC WITH DIFFE RENTI AL/PL ATELE T neutrophils (absolute) 3.4 x10e3 /uL 1.4-7. 0 Not Available [facility] ([facility]) [address] [place], [address], 03/26/2024 08:22:07 03/25/20 24 03/26/2024 CBC WITH DIFFE RENTI AL/PL ATELE T lymphs (absolute) 2.3 x10e3 /uL 0.7-3. 1 Not Available [facility] ([facility]) [address] [place], [address], 03/26/2024 08:22:07 03/25/20 24 03/26/2024 CBC WITH DIFFE RENTI AL/PL ATELE T monocytes(ab solute) 0.6 x10e3 /uL 0.1-0. 9 Not Available [facility] ([facility]) [address] [facility], [place], [address], 03/26/2024 08:22:07 03/25/20 24 03/26/2024 CBC WITH DIFFE RENTI AL/PL ATELE T eos (absolute) 0.4 x10e3 /uL 0.0-0. 4 Not Available [facility] ([facility]) [address] [facility], [place], [address], 03/26/2024 08:22:07 03/25/20 24 03/26/2024 CBC WITH DIFFE RENTI AL/PL ATELE T baso (absolute) 0.1 x10e3 /uL 0.0-0. 2 Not Available [facility] ([facility]) [address] [facility], [place], [address], 03/26/2024 08:22:07 03/25/20 24 03/26/2024 CBC WITH DIFFE RENTI AL/PL ATELE T immature granulocytes 0 % notest ab. Not Available [facility] ([facility]) [address] [facility], [place], [address], 03/26/2024 08:22:07 03/25/20 24 03/26/2024 CBC WITH DIFFE RENTI AL/PL ATELE T immature grans (abs) 0.0 x10e3 /uL 0.0-0. 1 Not Available [facility] ([facility]) [address] [place], [address], 03/26/2024 08:22:07 09/15/19 25 09/15/2024 HbA1c (hemo globi n A1c), blood HbA1c 6.1 Not Available In-Office Order Internal Use Only DO Not Attach Compendium DO Not Attach Compendium, Do Not Delete/merge, [id number] 09/15/2024 14:58:24 Result Notes None recorded. Problems Name Problem SNOMED Code Status Onset Date Resolution Date Notes Provider Name and Address Organization Details Recorded Time Hyperlipid emia 68071626 Active 2023 Rober Mcdaniel MD Attn: Chevy piedra,[address] [facility], [place], [address], [facility] 4 10:29:08 Anxiety disorder 029314329 Active 2023 Rober Mcdaniel MD Attn: Chevy piedra,[address] [facility], [place], [address], [facility] 4 10:29:33 Smoker 73583819 Active 2023 Rober Mcdaniel MD Attn: Chevy piedra,[address] [facility], [place], [address], [facility] 4 10:30:05 Hypertensi ve disorder 50352671 Active 2023 Rober Mcdaniel MD Attn: Chevy piedra,[address] [facility], [place], [address], [place] - [facility] 4 10:30:29 Benign prostatic hyperplasi a 596605480 Active 2023 Rober Mcdaniel MD Attn: Chevy piedra,[address] [facility], [place], [address], [place] - [facility] 4 10:30:39 Atheroscle rosis of aorta 71256497 Active 2023 Rober Mcdaniel MD Attn: Chevy piedra,[address] [place], [address], [place] - [facility] 4 10:30:56 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 Procedures Surgical History Date Name Laterality Status Provider Name and Address Organization Details Recorded Time repair of prostate completed Nancy Gilbert MA [place] - [facility] 03/25/2024 10:20:34 colonoscopy completed Nancy Gilbert MA [facility] 03/25/2024 10:20:29 Imaging Results None recorded. Procedure Notes None recorded. Medical Equipment None Reported. Allergies No known drug allergies Medications Name Sig Start Date Stop Date Status Note LastModified by Organization Details LastModified Time atorvastat in 40 mg tablet TAKE 1 TABLET BY MOUTH EVERY DAY active Not Available Not Available No t Available trazodone 50 mg tablet TAKE 1 TABLET BY MOUTH EVERYDAY AT BEDTIME active Not Available Not Available No t Available tizanidine 4 mg tablet TAKE 1 TABLET BY MOUTH TWICE A DAY active Not Available Not Available No t Available metoprolol succinate ER 50 mg tablet,ext ended release 24 hr TAKE 1 TABLET BY MOUTH EVERY DAY 2024 active Not Available Not Available Not Avai lable ondansetro n HCl 4 mg tablet TAKE 1 TABLET BY MOUTH EVERY 8 HOURS NEEDED FOR NAUSEA/E MESIS. 05/26 completed not taking Not Available Not Available Not Available meloxicam 7.5 mg tablet TAKE 1 TABLET BY MOUTH EVERY DAY 05/26 completed not taking Not Available Not Available Not Available tamsulosin 0.4 mg capsule Take 1 capsule every day by oral route. 2024 active Not Available Not Available Not Avai lable cephalexin 500 mg capsule TAKE 1 CAPSULE (500 MG) BY MOUTH 3 TIMES DAILY FOR 5 DAYS 03/25 completed Not Available Not Available Not Available metformin 1,000 mg tablet TAKE 1 TABLET BY MOUTH TWICE A DAY WITH MEALS 09/15 completed Not Available Not Available Not Available Gas Relief Extra Strength 125 mg capsule TAKE 2 TABLETS PM BEFORE PROCEDUR E AND 2 TABLETS AM OF PROCEDUR E DIRECTED BY GI INSTRUCT IONS 03/25 completed Not Available Not Available Not Available omeprazole 20 mg capsule,de layed release TAKE 1 CAPSULE BY MOUTH EVERY DAY active Not Available Not Available No t Available Laxative (bisacodyl ) 5 mg tablet,del ayed release TAKE 4, 5MG TABS AT 7PM DIRECTED BY GI INSTRUCT ION SHEET 03/25 completed Not Available Not Available Not Available duloxetine 60 mg capsule,de layed release TAKE 1 CAPSULE BY MOUTH EVERY DAY active Not Available Not Available No t Available aspirin 81 mg daily active Not Available Not Available No t Available GaviLyte-G 236 gram-22.74 gram-6.74 gram-5.86 gram oral solution TAKE 1 EACH BY MOUTH ONE TIME ONLY FOR 1 DOSE DIRECTED BY GI INSTRUCT IONS. MAY ADD FLAVOR PACKS 03/25 completed Not Available Not Available Not Available OneTouch Verio test strips TEST BLOOD SUGAR TWO TIMES DAILY BEFORE MORNING MEAL AND EVENING MEAL active Not Available Not Available No t Available Vitals Date Recorded Body height Body mass index (BMI) Body weight Heart rate Respiratory rate Body temperature Oxygen saturation Oxygen saturation in Arterial blood by Pulse oximetry Systolic blood pressure Diastolic blood pressure Provider Name and Address Organization Details Last Updated DateTime 4 167.64 cm 23 kg/m2 96131.8 4 g 79 /min 16 /min 97.5 [degF] 95 % 95 % 121 mm[Hg] 74 mm[Hg] Nancy Gilbert MA [place] - [facility] 4 10:25:15 Date Recorded Body height Body mass index (BMI) Body weight Heart rate Respiratory rate Body temperature Oxygen saturation Oxygen saturation in Arterial blood by Pulse oximetry Systolic blood pressure Diastolic blood pressure Provider Name and Address Organization Details Last Updated DateTime 4 167.64 cm 22.9 kg/m2 37482.1 2 g 61 /min 14 /min 97.2 [degF] 95 % 95 % 106 mm[Hg] 69 mm[Hg] Krissy Yo MA [place] - [facility] 4 10:00:56 Date Recorded Body height Body mass index (BMI) Body weight Oxygen saturation Oxygen saturation in Arterial blood by Pulse oximetry Heart rate Respiratory rate Body temperature Systolic blood pressure Diastolic blood pressure Provider Name and Address Organization Details Last Updated DateTime 5 167.64 cm 22.6 kg/m2 76008.2 9 g 97 % 97 % 66 /min 16 /min 97.5 [degF] 130 mm[Hg] 75 mm[Hg] Krissy Yo [place] 14:32:59 Social History Question Answer Notes LastModified by Organizat ion Details LastModified Time Tobacco Smoking Status Current Every Day Smoker Nancy Gilbert MA null, [place] - [facility] 03/25/2024 10:16:36 Do You Have An Advance Directive? No Information not available 03/25/2024 Are You Blind Or Do You Have Difficulty Seeing? Yes Glasses Information not available 05/26/2024 What Is Your Level Of Caffeine Consumption? Occasional Information not available 09/15/2024 In The 14 Days Before Symptom Onset, Have You Had Close Contact With A Laboratory-confir med COVID-19 While That Case Was Ill? No Information not available 03/25/2024 In The 14 Days Before Symptom Onset, Have You Had Close Contact With A Person Who Is Under Investigation For COVID-19 While That Person Was Ill? No Information not available 03/25/2024 Have You Been To An Area Known To Be High Risk For COVID-19? No Information not available 03/25/2024 Are You Deaf Or Do You Have Serious Difficulty Hearing? Yes [place] In Both Ears Information not available 05/26/2024 What Type Of Diet Are You Following? REGULAR Information not available 03/25/2024 What Is The Highest Grade Or Level Of School You Have Completed Or The Highest Degree You Have Received? [id number] Information not available 03/25/2024 Are There Any Guns Present In Your Home? No Information not available 03/25/2024 What Was The Date Of Your Most Recent Tobacco Screening? 09/15/2024 Information not available 09/15/2024 What Is Your Relationship Status? Information not available 03/25/2024 Do You Use Your Seat Belt Or Car Seat Routinely? Yes Information not available 03/25/2024 Do You Have Smoke And Carbon Monoxide Detectors In Your Home? Yes Information not available 03/25/2024 How Much Tobacco Do You Smoke? 1 PPD Information not available 03/25/2024 Do You Use Sunscreen Routinely? No Information not available 03/25/2024 Has Tobacco Cessation Counseling Been Provided? Yes Information not available 05/26/2024 On What Date Was Tobacco Cessation Counseling Provided? 09/15/2024 Information not available 09/15/2024 Sex: Male Functional Status Question Answer Note LastModified by Organizat ion Details LastModified Time Do you use any illicit or recreational drugs? Yes Marijuana- for pain Information not available 03/25/2024 Do you or have you ever used any other forms of tobacco or nicotine? No Information not available 03/25/2024 What is your level of alcohol consumption? None quit 2023 Information not available 09/15/2024 Are you currently employed? No Disabled Information not available 03/25/2024 Are you able to care for yourself? Yes Information not available 03/25/2024 What is your exercise level? None daily Information not available 09/15/2024 Mental Status Question Answer Note LastModified by Organization D etails LastModified Time Do you feel stressed (tense, restless, nervous, or anxious, or unable to sleep at night)? [id number] Information not available 03/25/2024 Family History Relationship Description Onset Age of this Age Resolved Age Notes LastModified by Organization Details LastModified Time Mother Diabetes mellitus [email or web address] Not available 03/25 10:16:19 Maternal Grandmother Diabetes mellitus [email or web address] Not available 03/25 10:16:19 Maternal Grandfather Diabetes mellitus [email or web address] Not available 03/25 10:16:19 Medical History Condition Response Coronary Artery Disease N Other N High Blood Pressure N Atrial Fibrillation N Kidney or Bladder Problems N Thyroid Problems N GI Problems N Depression N COPD N Blood Clots N Have you had a mammogram in the last yea r? N Skin Problems N Anemia N Heart Attack ([place]) N Anxiety Disorder Y Diabetes Y Muscle, Joint, or Bone Problems Y Seizures/Epilepsy N Have you had a colonoscopy in the last 1 0 years? N Acid Reflux (GERD) N Cancer N Stroke Y Asthma N Allergies N Have you had a PSA blood test in the las t year? N High Cholesterol Y Hepatitis N Liver Disease N Headaches N Heart Failure N Osteoporosis N Immunizations Vaccine Type Date Status Note Provider Nam e and Address Organization Details Recorded Time COVID-19, mRNA, LNP-S, bivalent, PF, 30 mcg/0.3 mL dose 5 completed YOLIS Duarte null, [place] - [facility] 10/07/2024 09:50:05 Tdap 5 completed Krissy Yo [place], [place] [facility] 09/15/2024 18:27:09 Pneumococcal conjugate PCV20, polysaccharide [id number] conjugate, adjuvant, PF 5 completed Krissy Yo [place], [place] [facility] 09/15/2024 18:27:09 Past Encounters Encounter ID Performer Location Encounter Start Date Encounter Closed Date Diagnosis/Indication Diagnosis SNOMED-CT Code Diagnosis ICD10 Code Diagnosis Note [id number] MD Jessica Miller (Adult Med) [address] [place] [address] 03/25/2024 09:58:18 03/29/2024 16:10:09 Type 2 diabetes mellitus 19169742 E11.9 - pt is on metformine Hyperlipidemia 43596640 E78.5 -continue statin Anxiety disorder 3330193 06 F41.9 with insomnia - pt is on duloxetine /trazadone Cerebrovas cular accident 358872797 I63.9 with residual L/side weakness per pt -using cane-exam did not show weakness [id number] MD Jessica Miller (Adult Med) [address] [place] [address] 05/26/2024 09:34:25 05/27/2024 16:24:41 [id number]|2024-12-07 08:16:00|2024-12-07 08:16:00|XMS_ITS|BKG DAEMON|External Medical Summaries|[id number]|" Encounter Summary Created on: December 07, 2024 Albert Evans : 1960 Sex: Male Author Organization [facility] Address [address] [place] [address] Care Team Providers Care Director Credit Risk Name Role Phone Christos Estrada MD Primary Care Provider [phone] Encounter Details Date Type Department Care Team (Late st Contact Info) Description 12/05/1998 Outpatient Historical 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
--- OUTSIDE RECORDS SUMMARY | 2024-12-07 08:16 | XMS_ITS | Encounter Summary ---
Author Organization [facility] Address 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
--- OUTSIDE RECORDS SUMMARY | 2024-12-07 08:16 | XMS_ITS | Encounter Summary ---
Author Organization [facility] Address [address] [place] [address] Care Team Providers Care Tracer Bullet Charging Machine Operator Name Role Phone Christos Estrada MD Primary Care Provider [phone] Encounter Details Date Type Department Care Team (Late st Contact Info) Description 01/02/2003 Outpatient Historical [facility] Primary Care Internal Medicine 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 Gender Identity Not on file Sexual Orientation Not on file documented as of this encounter Plan of Treatment Not on file documented as of this encounter Visit Diagnoses Not on filedocumented in this encounter Additional Health Concerns Infection Onset Date Last Indicated Resolved Time R/O COVID-19 10/29/2020 10/29/2020 10/29/2020 6:43 AM CDT documented as of this encounter Care Teams Tracer Bullet Charging Machine Operator Relationship Specialty Start Date End Date Christos Estrada MD [address] [place] [phone] PCP - General Family Practice 07/01/23 documented as of this encounter
--- OUTSIDE RECORDS SUMMARY | 2024-12-07 08:16 | XMS_ITS | Encounter Summary ---
Author Organization [facility] Address 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 Gender Identity Not on file Sexual Orientation Not on file documented as of this encounter Plan of Treatment Not on file documented as of this encounter Visit Diagnoses Diagnosis Family history of diabetes mellitus- Primary documented in this encounter Additional Health Concerns Infection Onset Date Last Indicated Resolved Time R/O COVID-19 10/29/2020 10/29/2020 10/29/2020 6:43 AM CDT documented as of this encounter Care Teams Rubber Down Relationship Specialty Start Date End Date Christos Estrada MD [address] [place] [phone] PCP - General Family Practice 07/01/23 documented as of this encounter
--- OUTSIDE RECORDS SUMMARY | 2024-12-07 08:16 | XMS_ITS | Encounter Summary ---
Author Organization [facility] Address [address] [place] [address] Care Team Providers Care Automatic Centrifugal Station Operator Name Role Phone Christos Estrada MD Primary Care Provider [phone] Encounter Details Date Type Department Care Team (Late st Contact Info) Description 08/24/2000 Outpatient Historical [facility] Primary Care Internal Medicine 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 Gender Identity Not on file Sexual Orientation Not on file documented as of this encounter Plan of Treatment Not on file documented as of this encounter Visit Diagnoses Not on filedocumented in this encounter Additional Health Concerns Infection Onset Date Last Indicated Resolved Time R/O COVID-19 10/29/2020 10/29/2020 10/29/2020 6:43 AM CDT documented as of this encounter Care Teams Automatic Centrifugal Station Operator Relationship Specialty Start Date End Date Christos Estrada MD [address] [place] [phone] PCP - General Family Practice 07/01/23 documented as of this encounter
--- OUTSIDE RECORDS SUMMARY | 2024-12-07 08:16 | XMS_ITS | Encounter Summary ---
Author Organization [facility] Address [address] [place] [address] Care Team Providers Care Dust Collector Attendant Name Role Phone Christos Estrada MD Primary Care Provider [phone] Encounter Details Date Type Department Care Team (Late st Contact Info) Description 05/06/2001 Outpatient Historical [facility] Primary Care Internal Medicine 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
--- OUTSIDE RECORDS SUMMARY | 2024-12-07 08:16 | XMS_ITS | Encounter Summary ---
Author Organization [facility] Address [address] [place] [address] Care Team Providers Care Spool Salvager Name Role Phone Christos Estrada MD Primary Care Provider [phone] Encounter Details Date Type Department Care Team (Late st Contact Info) Description 07/22/2001 Outpatient Historical [facility] Primary Care Internal Medicine 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
--- OUTSIDE RECORDS SUMMARY | 2024-12-07 08:16 | XMS_ITS | Encounter Summary ---
Author Organization [facility] Address [address] [place] [address] Care Team Providers Care Mineral Economist Name Role Phone Christos Estrada MD Primary Care Provider [phone] Encounter Details Date Type Department Care Team (Late st Contact Info) Description 08/06/2001 Outpatient Historical [facility] Primary Care Internal Medicine 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
--- OUTSIDE RECORDS SUMMARY | 2024-12-07 08:16 | XMS_ITS | Encounter Summary ---
Author Organization [facility] Address [address] [place] [address] Care Team Providers Care Billposting Supervisor Name Role Phone Christos Estrada MD Primary Care Provider [phone] Encounter Details Date Type Department Care Team (Late st Contact Info) Description 09/20/2002 Outpatient Historical [facility] Primary Care Internal Medicine 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
--- OUTSIDE RECORDS SUMMARY | 2024-12-07 08:16 | XMS_ITS | Clinical Summary ---
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 Gender Identity Not on file Sexual Orientation Not on file Plan of Treatment Health Maintenance Due Date Last Done Comments Hepatitis C Virus (HCV) Screening 1960 TdaP Immunization 1960 Colonoscopy 2006 Colorectal Cancer Screening 2006 Cologuard 2011 Immunochemical Fecal Occult Blood 2011 Pneumococcal Immunization (5 0+ years) (1 of 1 - PCV) 2011 Zoster Immunization (1 of 2) 2011 PSA Discussion 2016 SARS-COV-2 Immunization ( - 2023- season) 2024 Influenza Immunization (Seas on Ended) 2025 Respiratory Syncytial Virus (RSV) Immunization (Adult) (1 - 1-dose 75+ series) 2036 Hepatitis B Immunization Aged Out No longer eligible based on patient's age to complete this topic Meningococcal Immunization (ACWY) Aged Out No longer eligible based on patient's age to complete this topic Rotavirus Immunization Aged Out No lo nger eligible based on patient's age to complete this topic
--- NOTE | 2024-12-07 08:23 | EST_ITS ---
Patient Info Name: Albert Evans Age: 64 years : 1960 Gender: Male Ht: 65 in Wt: 140 lbs BSA: 1.71 m2 HR: 69 bpm BP: 112 / 76 mmHg Exam Date: 12/07/2024 10:18 AM Patient Status: O Admit Date: 12/07/2024 Exam Type: CA stress emerson w NM Study Info Indications Chest pain, unspecified - A regadenoson stress test was performed. Staff Referring Physician: Sahil Watts DO Attending Provider: Sahil Watts DO Exercise Technologist: Kimmy Britt Exercise Physician: Sahil Watts DO Summary 1. 1. Negative lexiscan stress test for ischemic ST changes by ECG criteria. 2. 2. Stable hemodynamics throughout the test. 3. 3. Nuclear scan to follow and will be reported separately. Please correlate with it. 4. 4. Patient informed of the above results. Protocol: Lexiscan Stress ECG Details Stage: REST Duration (min): 0 min : 44 sec HR (bpm): 56 SBP (mmHg): 112 DBP (mmHg): 76 Stage: REST Duration (min): 6 min : 3 sec HR (bpm): 56 SBP (mmHg): 112 DBP (mmHg): 76 Stage: STAGE 1 Duration (min): 1 min : 0 sec HR (bpm): 69 SBP (mmHg): 113 DBP (mmHg): 71 Stage: RECOVERY Duration (min): 1 min : 0 sec HR (bpm): 89 SBP (mmHg): 113 DBP (mmHg): 71 Stage: RECOVERY Duration (min): 2 min : 0 sec HR (bpm): 82 SBP (mmHg): 113 DBP (mmHg): 71 Stage: RECOVERY Duration (min): 3 min : 0 sec HR (bpm): 81 SBP (mmHg): 103 DBP (mmHg): 72 Stage: RECOVERY Duration (min): 3 min : 5 sec HR (bpm): 80 SBP (mmHg): 103 DBP (mmHg): 72 Rest HR: 56 bpm Peak HR: 91 bpm Rest Sys BP: 112 mmHg Peak Sys BP: 113 mmHg Max Pred HR: 157 bpm % Max Pred HR: 58 % Target HR: 133 bpm Max RPP: 10,283 bpm*mmHg Termination Reason: Completed protocol Cardiac Symptoms: Shortness of breath Total Time: 1 min : 0 sec Rest Sanders BP: 76 mmHg Peak Sanders BP: 71 mmHg Total Dose: 0.4 mg Resting ECG Sinus bradycardia with borderline T wave in anterior leads. Stress ECG No ST changes. Arrhythmias None. Report Signatures
--- NOTE | 2024-12-07 08:58 | ECHO_ITS ---
Patient Info Name: Albert Evans Age: 64 years : 1960 Gender: Male Ht: 66 in Wt: 140 lbs BSA: 1.72 m2 HR: 56 bpm BP: 124 / 84 mmHg Technical Quality: Good Exam Date: 12/07/2024 9:02 AM Patient Status: O Admit Date: 12/07/2024 Exam Type: CA echo doppler color flow Study Info Indications Other forms of dyspnea - R06.09 - Complete two-dimensional, color flow and Doppler transthoracic echocardiogram is performed. Staff Referring Physician: Sahil Watts DO Dog Or Animal Sitter: Verónica Monterroso Attending Provider: Sahil Watts DO Summary 1. Complete two-dimensional, color flow and Doppler transthoracic echocardiogram is performed. 2. Left ventricular chamber dimension is normal. 3. Left ventricular systolic function is normal, estimated at 60-65. 4. The left ventricular diastolic function is grade I diastolic dysfunction. 5. E/e' 8 is minimally elevated. 6. There is trace mitral valve regurgitation. 7. There is mild tricuspid valve regurgitation. 8. No pulmonary hypertension, estimated pulmonary arterial systolic pressure is 28 mmHg. Left Ventricle E/e' 8 is minimally elevated. Left ventricular chamber dimension is normal. Left ventricular systolic function is normal, estimated at 60-65. The left ventricular diastolic function is grade I diastolic dysfunction. Right Ventricle Right ventricular chamber dimension is normal. Right ventricular systolic function is normal and with normal TAPSE 1.8 cm. Left Atria Left atrial chamber dimension is normal. Right Atria Right atrial chamber dimension is normal. Aortic Valve The aortic valve is trileaflet. There is no aortic valve stenosis. There is no aortic valve regurgitation. Pulmonic Valve There is no pulmonic regurgitation. Mitral Valve There is no mitral valve stenosis. There is trace mitral valve regurgitation. Tricuspid Valve There is mild tricuspid valve regurgitation. No pulmonary hypertension, estimated pulmonary arterial systolic pressure is 28 mmHg. Pericardium/Pleural There is no pericardial effusion. Inferior Vena Cava Normal inferior vena cava with >50% collapse upon inspiration consistent with normal right atrial pressure, 5 mmHg. Aorta The aortic root size at the sinus of Valsalva is normal. Left Ventricular Outflow Tract Name Value Normal LVOT 2D LVOT Diameter 2.0 cm LVOT Doppler LVOT Peak Velocity 84 cm/s LVOT Peak Gradient 3 mmHg LVOT Mean Gradient 2 mmHg LVOT VTI 21 cm LVOT VTI/AV VTI Ratio 0.8 LVOT Stroke Volume 68 ml LVOT CO 12.5 l/min LVOT CI 7.3 l/min/m2 Pulmonic Valve Name Value Normal PV Doppler PV Peak Velocity 60 cm/s PV Peak Gradient 1 mmHg Mitral Valve Name Value Normal MV Diastolic Function MV E Peak Velocity 77 cm/s MV A Peak Velocity 78 cm/s MV E/A 1.0 MV Decel Time (PW) 239 ms MV Annular TDI MV E/e' (Septal) 7.9 MV E/e' (Lateral) 9.2 MV E/e' (Average) 8.6 Tricuspid Valve Name Value Normal TV Regurgitation Doppler TR Peak Velocity 239 cm/s TR Peak Gradient 21 mmHg Estimated PAP/RSVP RA Pressure 5 mmHg <=5 PA Systolic Pressure 28 mmHg <36 RV Systolic Pressure 28 mmHg <36 TV Annular TDI TV Lateral Mary s' Velocity 11.8 cm/s >=9.5 Aorta Name Value Normal Ascending Aorta Ao Root Diameter (MM) 3.8 cm Ao Root Diam Index (MM) 2.2 cm/m2 Aortic Valve Name Value Normal AV Doppler AV Peak Velocity 121 cm/s AV Peak Gradient 6 mmHg AV Mean Gradient 4 mmHg AV VTI 28 cm AV Area (Cont Eq VTI) 2.5 cm2 >=3.0 AV Area (Cont Eq Samuel) 2.2 cm2 AV DI (Samuel) 0.70 AV Regurgitation 2D LVOT Area 3.2 cm2 Ventricles Name Value Normal LV Dimensions 2D/MM IVS Diastolic Thickness (2D) 1.0 cm 0.6-1.0 LVID Diastole (2D) 4.5 cm 4.2-5.8 LVIW Diastolic Thickness (2D) 0.9 cm 0.6-1.0 LVID Systole (2D) 3.1 cm 2.5-4.0 LVOT Diameter 2.0 cm LV Mass (2D Cubed) 150.30 g 88.00-224.00 LV Mass Index (2D Cubed) 87 g/m2 49-115 Relative Wall Thickness (2D) 0.42 <=0.42 LV Fractional Shortening/Ejection Fraction 2D/MM LV Fractional Shortening (2D) 31 % 25-43 LV EF (2D Teichholz) 58 % LV Diastolic Volume (4C MOD) 92 ml LV EF (4C MOD) 55 % LV Diastolic Volume (2C MOD) 95 ml LV EF (2C MOD) 56 % LV Diastolic Volume (BP MOD) 95 ml 62-150 LV Diastolic Volume Index (BP MOD) 55 ml/m2 34-74 LV Systolic Volume (BP MOD) 42 ml 21-61 LV Systolic Volume Index (BP MOD) 24 ml/m2 11-31 LV EF (BP MOD) 56 % 52-72 LV Diastolic Length (4C) 8.3 cm LV Systolic Length (4C) 7.2 cm LV Stroke Volume (4C MOD) 50 ml RV Dimensions 2D/MM RVID Diastole (2D) 3.9 cm 2.1-3.5 Atria Name Value Normal LA Dimensions LA Volume (4C A-L) 35 ml LA Volume (BP A-L) 44 ml RA Dimensions RA Systolic Major Brielle Length (4C) 4.5 cm 2.1-2.7 RA Area (4C) 14.6 cm2 <=18.0 Report Signatures
== END 2024-12-07 08:10 | disposition home or self-care (01) ==
PROVIDERS: PCP Family Medicine Adolescent Medicine; Visit Provider Internal Medicine Cardiovascular Disease
DX: R07.9 Chest pain, unspecified (principal)
CPT/HCPCS: 78452; 93017; 93306; A9502; J2785

== ENCOUNTER 2025-01-09 16:36 | Emergency (ER) | payer MEDICARE, SELFPAY ==
--- NOTE | ~2025-01-09 | XR_ITS ---
HISTORY: left POSTERIOR elbow pain, fall COMPARISON: None TECHNIQUE: 3 views of the left elbow were performed. Examination is markedly limited as the lateral view is not a true lateral, limiting its evaluation. FINDINGS: No acute displaced fracture is identified. No elevation of the anterior or posterior fat pads are identified to suggest a supracondylar fracture . Soft tissue swelling posterior to the olecranon is identified. Bone mineralization is age-appropriate. IMPRESSION: Limited evaluation of the left elbow secondary to the lack of adequacy of the lateral vi ew is without acute displaced fracture, as detailed above. Reviewed, dictated and finalized at location A. IMPRESSION: Limited evaluation of the left elbow secondary to the lack of adeq uacy of the lateral view is without acute displaced fracture, as detailed above .
--- NOTE | ~2025-01-09 | XR_ITS ---
HISTORY: DOWN OVER AGAIN BECAUSE RAD COULDNT READ FIRST LATERAL COMPARISON: Previous examination performed approximately 45 minutes earlier but with poor technique on the lateral view TECHNIQUE: Lateral views of the left elbow were performed. FINDINGS: Anterior humeral line is preserved. The radiocapitellar line is maintained. Elevation of the anterior fat pad is identified consistent with a joint effusion. The posterior fat pad is intact. Redemonstration of soft tissue swelling posterior to the olecranon, consistent with patient's history . IMPRESSION: Left elbow joint effusion, as detailed above. No acute displaced fracture. Reviewed, dictated and finalized at location A.
--- NOTE | ~2025-01-09 | XR_ITS ---
HISTORY: left MEDIAL hand pain, fall COMPARISON: None TECHNIQUE: 3 views of the left hand were performed. FINDINGS: No acute fracture is identified. Severe degenerative disease is identified within the first carpometacarpal joint space. Gullwing deformity is identified within the proximal interphalangeal joint spaces of the second, thir d, fourth and fifth digits. The remaining joint spaces are preserved. The carpal arcs are intact. Mild radiocarpal joint space narrowing with sclerosis of the distal radius is present. Periarticular osteopenia suggesting osteoarthritis. No significant soft tissue swelling. No radiopaque foreign body is identified. IMPRESSION: Degenerative disease without acute fracture or dislocation within the left hand, as detgeorgette led above. Reviewed, dictated and finalized at location A. IMPRESSION: Degenerative disease without acute fracture or dislocation within t he left hand, as detailed above.
--- NOTE | ~2025-01-09 | XR_ITS ---
HISTORY: left hip pain, fall COMPARISON: None TECHNIQUE: 2 views of the left hip along with an AP view of the pelvis FINDINGS: No acute fracture or dislocation is identified. Superior lateral sclerosis of the femoral acetabular joint space is present consistent with osteoarth ritis. Mineralization is age-appropriate IMPRESSION: Degenerative disease without acute fracture or dislocation Reviewed, dictated and finalized at location A.
[2025-01-09 16:47] VITALS: BP 144/82; PULSE 85; RESP 18; TEMP 37.1; O2SAT 97
--- OUTSIDE RECORDS SUMMARY | 2025-01-09 17:12 | XMS_ITS | Encounter Summary ---
Author Organization [employer] Address 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 Gender Identity Not on file Sexual Orientation Not on file documented as of this encounter Plan of Treatment Not on file documented as of this encounter Visit Diagnoses Diagnosis Cervical spondylosis without myelopathy- Primary documented in this encounter Additional Health Concerns Infection Onset Date Last Indicated Resolved Time R/O COVID-19 10/29/2020 10/29/2020 10/29/2020 6:43 AM CDT documented as of this encounter Care Teams Hairspring Truing Inspector Relationship Specialty Start Date End Date Christos Estrada MD [address] [place] [phone] PCP - General Family Practice 07/01/23 documented as of this encounter
--- OUTSIDE RECORDS SUMMARY | 2025-01-09 17:12 | XMS_ITS | Encounter Summary ---
Author Organization [facility] Address 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
--- OUTSIDE RECORDS SUMMARY | 2025-01-09 17:12 | XMS_ITS | Encounter Summary ---
Author Organization [facility] Address [address] [place] [address] Care Team Providers Care Assistant Controller Name Role Phone Christos Estrada MD Primary Care Provider [phone] Encounter Details Date Type Department Care Team (Late st Contact Info) Description 03/13/2000 Outpatient Historical [facility] Ramu Adkins Family history of diabetes mellitus (Primary Dx) Social History Tobacco Use Types Packs/Day Years Used Date Smoking Tobacco: Never Assessed Sex and Gender Information Value Date Recorded Sex Assigned at Not on file Legal Sex Male 3:02 AM SPECIALIZED DEVELOPER Gender Identity Not on file Sexual Orientation [...] documented as of this encounter Care Teams Assistant Controller Relationship Specialty Start Date End Date Christos Estrada MD [address] [place] [phone] PCP - General Family Practice 07/01/23 documented as of this encounter
--- OUTSIDE RECORDS SUMMARY | 2025-01-09 17:12 | XMS_ITS | Encounter Summary ---
Author Organization [facility] Address [address] [place] [address] Care Team Providers Care Engineering Intern Name Role Phone Christos Estrada MD Primary Care Provider [phone] Encounter Details Date Type Department Care Team (Late st Contact Info) Description 08/06/2001 Outpatient Historical [facility] Primary Care Internal Medicine [address] [place] [phone] Rich Dorado DO NO ADDRESS ON FILE Social History Tobacco Use Types Packs/Day Years Used Date Smoking Tobacco: Never Assessed Sex and Gender Information Value Date Recorded Sex Assigned at Not on file Legal Sex Male 3:02 AM SPA CONCIERGE Gender Identity Not on file Sexual Orientation Not on file documented as of this encounter Plan of Treatment Not on file documented as of this encounter Visit Diagnoses Not on filedocumented in this encounter Additional Health Concerns Infection Onset Date Last Indicated Resolved Time R/O COVID-19 10/29/2020 10/29/2020 10/29/2020 6:43 AM CDT documented as of this encounter Care Teams Engineering Intern Relationship Specialty Start Date End Date Christos Estrada MD [address] [place] [phone] PCP - General Family Practice 07/01/23 documented as of this encounter
--- OUTSIDE RECORDS SUMMARY | 2025-01-09 17:12 | XMS_ITS | Encounter Summary ---
Author Organization [facility] Address [address] [place] [address] Care Team Providers Care Rolled Gold Plater Name Role Phone Christos Estrada MD Primary Care Provider [phone] Encounter Details Date Type Department Care Team (Late st Contact Info) Description 08/16/1999 Outpatient Historical [facility] Ramu Adkins Social History Tobacco Use Types Packs/Day Years Used Date Smoking Tobacco: Never Assessed Sex and Gender Information Value Date Recorded Sex Assigned at Not on file Legal Sex Male 3:02 AM RN NEW GRAD Gender Identity Not on file Sexual Orientation Not on file documented as of this encounter Plan of Treatment Not on file documented as of this encounter Visit Diagnoses Not on filedocumented in this encounter Additional Health Concerns Infection Onset Date Last Indicated Resolved Time R/O COVID-19 10/29/2020 10/29/2020 10/29/2020 6:43 AM CDT documented as of this encounter Care Teams Rolled Gold Plater Relationship Specialty Start Date End Date Christos Estrada MD [address] [place] [phone] PCP - General Family Practice 07/01/23 documented as of this encounter
--- OUTSIDE RECORDS SUMMARY | 2025-01-09 17:12 | XMS_ITS | Encounter Summary ---
Author Organization [facility] Address [address] [place] [address] Care Team Providers Care Computer Support Specialist Instructor Name Role Phone Christos Estrada MD Primary Care Provider [phone] Encounter Details Date Type Department Care Team (Late st Contact Info) Description 08/28/2000 Outpatient Historical [facility] Primary Care Internal Medicine 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 Gender Identity Not on file Sexual Orientation Not on file documented as of this encounter Plan of Treatment Not on file documented as of this encounter Visit Diagnoses Not on filedocumented in this encounter Additional Health Concerns Infection Onset Date Last Indicated Resolved Time R/O COVID-19 10/29/2020 10/29/2020 10/29/2020 6:43 AM CDT documented as of this encounter Care Teams Computer Support Specialist Instructor Relationship Specialty Start Date End Date Christos Estrada MD [address] [place] [phone] PCP - General Family Practice 07/01/23 documented as of this encounter
--- OUTSIDE RECORDS SUMMARY | 2025-01-09 17:12 | XMS_ITS | Encounter Summary ---
Author Organization [facility] Address [address] [place] [address] Care Team Providers Care Vice President Compliance Name Role Phone Christos Estrada MD Primary Care Provider [phone] Encounter Details Date Type Department Care Team (Late st Contact Info) Description 01/14/2000 Outpatient Historical [facility] Ramu Adkins Social History Tobacco Use Types Packs/Day Years Used Date Smoking Tobacco: Never Assessed Sex and Gender Information Value Date Recorded Sex Assigned at Not on file Legal Sex Male 3:02 AM MOBILITY DEVELOPER Gender Identity Not on file Sexual Orientation Not on file documented as of this encounter Plan of Treatment Not on file documented as of this encounter Visit Diagnoses Not on filedocumented in this encounter Additional Health Concerns Infection Onset Date Last Indicated Resolved Time R/O COVID-19 10/29/2020 10/29/2020 10/29/2020 6:43 AM CDT documented as of this encounter Care Teams Vice President Compliance Relationship Specialty Start Date End Date Christos Estrada MD [address] [place] [phone] PCP - General Family Practice 07/01/23 documented as of this encounter
--- OUTSIDE RECORDS SUMMARY | 2025-01-09 17:12 | XMS_ITS | Clinical Summary ---
Author Organization [facility] Address [address] [place] [address] Phone Care Team Providers Care Tire Design Engineer Name Role Phone Unavailable Primary Care Provider Unavailabl e Encounters Date Type Department Care Team Description 12/16/2024 [facility]phone [facility] [address] [place] [address] Moses Cochran APRN, CNP 10/27/2024 Telephone [facility] [address] [place] [address] Moses Cochran APRN, HEATH from Last 3 Months Social History Tobacco Use Types Packs/Day Years Used Date Smoking Tobacco: Never Assessed Sex and Gender Information Value Date Recorded Sex Assigned at Not on file Legal Sex Male 9:30 AM RN INTENSIVE CARE UNIT Gender Identity Not on file Sexual Orientation [...] PSA Discussion 2016 SARS-COV-2 Immunization ( - 2023-25 season) 2024 Influenza Immunization (Seas on Ended) 2025 Respiratory Syncytial Virus (RSV) Immunization (Adult) (1 - 1-dose 75+ series) 2036 Hepatitis B Immunization Aged Out No longer eligible based on patient's age to complete this topic Human Papillomavirus (HPV) Immunization Aged Out No longer eligible b ased on patient's age to complete this topic Meningococcal Immunization (ACWY) Aged Out No longer eligible based on patient's age to complete this topic Rotavirus Immunization Aged Out No lo nger eligible based on patient's age to complete this topic
--- OUTSIDE RECORDS SUMMARY | 2025-01-09 17:12 | XMS_ITS | Clinical Summary ---
Author Organization [facility] Address [address] [place] [address] Phone Care Team Providers Care Deputy Commissioner Name Role Phone Christos Estrada MD Primary Care Provider [phone] Allergies No known active allergies Medications aluminum [...] complication, without long-term current use of insulin ([facility]) take 1 tablet by mouth twice a day with meals 180 Tablet 2 04/08/20 24 Active Active Problems Patient Care Coordination No te Formatting of this note migh t be different from the original. 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 Immunizations Immunization Administration Dates Next Due (ADACEL/BOOSTRIX)(10 YR UP) TDAP VACCINE, 0.5ML, IM 01/18/2015 (PFIZER)(12 YR UP) COVID-19 VACCINE - EMERGENCY USE AUTHORIZATION, MRNA, [id number](PF) 30 MCG/0.3 ML IM SUSP 11/20/2020,10/30/2020 (PNEUMOVAX 23)(50 YRS UP) PN EUMOCOCCAL POLYSACCHARIDE (PPV23) 0.5 ML, IM 06/16/2019 (PREVNAR 20)(6 WKS UP) PNEUM OCOCCAL CONJUGATE VACCINE 20-VALENT (PCV20), POLYSACCHARIDE [id number] CONJUGATE, ADJUVANT 0.5 ML (PF) IM 12/18/2022 [...] on file Legal Sex Male 3:02 AM OFFICE CLERK Gender Identity Not on file Sexual Orientation Not on file Occupation Industry Job Start Date Job End Date disabled, strokes Not on file Not on file 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, [employer], 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 Not on file Not on [...] 11:09 AM CDT Height 167.6 cm (5' 6) 12/28/2023 11:09 AM CDT Body Mass Index 25.5 12/28/2023 11:09 AM CDT Plan of Treatment Health Maintenance Due Date Last Done Comments FIT-DNA Q 3 years 2006 FIT/FOBT Q 1 year 2006 08/16/1999 Flex Sig/CT Colonography Q 5 years 2006 ZOSTER VACCINE (1 of 2) 2011 DIABETES ANNUAL RETINAL EXAM 02/25/202407/2022, 07/05/2020, 07/05/2020, Additional history exists INFLUENZA VACCINE (#1) 2024 , 07/16/2022, 07/16/2022, Additional history exists COVID-19 Vaccine (2023-2 5 season) 2024 08/07/2022, 11/20/2020, 10/30/2020 DIABETES HBA1C Q 6 MONTHS 06/28/20242023, 07/01/2023, 12/17/2022, Additional history exists DIABETES ANNUAL FOOT EXAM 07/01/2024 07/01/2023, 12/2022 Medicare Advantage (MS) Preventative Visit/Annual Wellness Visit 07/27/2024 12/28/2023, 09/18/2021, 10/08/2020 DIABETES MICROALBUMIN ANNUAL SCREEN 09/04/2024 09/04/2023, 07/01/2023 LDL CHOLESTEROL ANNUAL 12/27/2024 , 12/18/2022, 07/16/2022, Additional history exists DTAP/TDAP/TD VACCINES [...] RATIO, RANDOM UR Routine 09/04/2023 9:57 AM OFFICE CLERK Primary hypertension Type 2 diabetes mellitus without complication, without long-term current use of insulin ([facility]) HM DIABETES EYE EXAM Routine 02/24/2023 2:14 PM CDT from Last 3 Months or Most Recently Relevant to Health Maintenance Results * (ABNORMAL) HEMOGLOBIN A1C (12/28/2023 11:44 AM CDT) HEMOGLOBIN A1C 6.7(H) <5.7 % of total Hgb [facility] Comment: For someone without known diabetes, [...] children. ESTIMATED AVERAGE GLUCOSE (MG/DL) 146 mg/dL [facility] ESTIMATED AVERAGE GLUCOSE (MMOL/L) 8.1 mmol/L [facility] Comment: This test was performed on the Waylon jonathon c503 platform. Effective 10/12/23, a change in test platforms from the Marin Shank Inspector to the Waylon jonathon c503 may have shifted HbA1c results compared to historical results. Based on laboratory validation testing conducted at [facility], the Waylon platform relative to the Marin [...] platforms is not recommended. Test Performed at: [place] [address] [address] [place] [address] Arielle Kristie Vo Blood 12/28/2023 11:4 4 AM CDT 12/29/2023 2:16 AM CDT us Myriam STOKES CHEMISTRY ORDERABLES Final Re sult [facility] [phone] [facility] [address] [place] [phone] * LIPID PANEL (12/28/2023 11:44 AM CDT) CHOLESTEROL 137 <200 mg/dL [facility] HDL 44 > OR = 40 mg/dL [facility] TRIGLYCERIDE 92 <150 mg/dL [facility] T[facility]aint LDL CALCULATED 75 mg/dL (calc) [facility]aint Comment: Reference range: <100 Desirable range <100 mg/dL for primary prevention; <70 mg/dL for patients with CHD or diabetic patients with > or = 2 CHD risk factors. LDL-C is now calculated using the Nicole calculation, which is a validated novel method providing better accuracy than the Friedewald equation in the estimation of LDL-C. Obi BAIRES et al. COLEEN. 2013;310(42): 6439-5693 (http://education.MedRunner/faq/IDA860) CHOL/HDL RATIO 3.1 <5.0 (calc) [facility] goldstein Norbert NON-HDL CHOLESTEROL 93 <130 mg/dL (calc) [facility] triston Toussaint Comment: For patients with diabetes plus 1 major ASCVD risk factor, treating to a non-HDL-C goal of <100 mg/dL (LDL-C of <70 mg/dL) is considered a therapeutic option. Test Performed at: [place] [address] [place] [address] [facility] Blood 12/28/2023 11:4 4 AM CDT 12/29/2023 2:16 AM CDT Myriam STOKES CHEMISTRY ORDERABLES Final Re sult [facility] [phone] [place] [address] [place] [address] * COLONOSCOPY REPORT (10/09/2023 9:28 AM CDT) Narrative Procedure Note Ángel Mitchell MD - 10/09/2023 9:28 AM CDT [facility] GI Patient Name: Albert Evans Procedure Date: 10/09/2023 [...] MICROALBUMIN/CREATININE RATIO, RANDOM UR (09/04/2023 9:57 AM OFFICE CLERK) Creatinine, Urine 135 20 - 320 mg/dL [...] within a diagnostic category. Test Performed at: [facility] [address] [place] [address] Arielle Gill MD Urine URINE SPECIMEN OBTAINED BY CLEAN CATCH PROCEDURE / Unknown 09/04/2023 9:57 AM OFFICE CLERK 09/05/2023 4:54 AM OFFICE CLERK us Christos Estrada MD URINE ORDERABLES Final Result [facility] [phone] [facility] [address] [place] [address] * DIABETES EYE EXAM (02/24/2023 2:14 PM CDT) us Abstract Provider HEALTH MAINTENANCE Edited Resu lt - Final [facility] CLIA# [id number] [address] [place] [address] from Last 3 Months or Most Recently Relevant to Health Maintenance Insurance [place] [facility] [id number] RX [employer] RX Member Subscriber Plan / Payer (Ef fective 2022-Present) Name:Albert Evans Relation to Subscriber:Self Name:Albert Evans Subscriber ID:Not on file Payer ID:Not on file Group ID:[id number] Type:RX Medicare Part D Address: [address] [place] Advance Directives For more information, please contact: [phone] * Full Code (Latest Code Status on [...] 9:06 AM 12/15/2019 2:19 PM Care Teams Deputy Commissioner Relationship Specialty Start Date End Date Christos Estrada MD [address] [place] [phone] PCP - General Family Practice 07/01/23
--- OUTSIDE RECORDS SUMMARY | 2025-01-09 17:12 | XMS_ITS | Encounter Summary ---
Author Organization [employer] Address 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
--- OUTSIDE RECORDS SUMMARY | 2025-01-09 17:12 | XMS_ITS | Encounter Summary ---
Author Organization [facility] Address [address] [place] [address] Care Team Providers Care Filling Layer Up Name Role Phone Christos Estrada MD Primary Care Provider Encounter Details Date Type Department Care Team (Late st Contact Info) Description 09/20/2002 Outpatient Historical [facility] Primary Care Internal Medicine [address] [place] [phone] Rich Dorado DO NO ADDRESS ON FILE Social History Tobacco Use Types Packs/Day Years Used Date Smoking Tobacco: Never Assessed Sex and Gender Information Value Date Recorded Sex Assigned at Not on file Legal Sex Male 3:02 AM APPLIED BEHAVIOR SPECIALIST Gender Identity Not on file Sexual Orientation Not on file documented as of this encounter Plan of Treatment Not on file documented as of this encounter Visit Diagnoses Not on filedocumented in this encounter Additional Health Concerns Infection Onset Date Last Indicated Resolved Time R/O COVID-19 10/29/2020 10/29/2020 10/29/2020 6:43 AM CDT documented as of this encounter Care Teams Filling Layer Up Relationship Specialty Start Date End Date Christos Estrada MD [address] [place] [phone] PCP - General Family Practice 07/01/23 documented as of this encounter
--- OUTSIDE RECORDS SUMMARY | 2025-01-09 17:12 | XMS_ITS | Encounter Summary ---
Author Organization [facility] Address [address] [place] [address] Care Team Providers Care Ice Hockey Coach Name Role Phone Christos Estrada MD Primary Care Provider [phone] Encounter Details Date Type Department Care Team (Late st Contact Info) Description 05/06/2001 Outpatient Historical [facility] Primary Care Internal Medicine [address] [place] [phone] Rich Dorado DO NO ADDRESS ON FILE Social History Tobacco Use Types Packs/Day Years Used Date Smoking Tobacco: Never Assessed Sex and Gender Information Value Date Recorded Sex Assigned at Not on file Legal Sex Male 3:02 AM CONVERTIBLE POWER SHOVEL OPERATOR Gender Identity Not on file Sexual Orientation Not on file documented as of this encounter Plan of Treatment Not on file documented as of this encounter Visit Diagnoses Not on filedocumented in this encounter Additional Health Concerns Infection Onset Date Last Indicated Resolved Time R/O COVID-19 10/29/2020 10/29/2020 10/29/2020 6:43 AM CDT documented as of this encounter Care Teams Ice Hockey Coach Relationship Specialty Start Date End Date Christos Estrada MD [address] [place] [phone] PCP - General Family Practice 07/01/23 documented as of this encounter
--- OUTSIDE RECORDS SUMMARY | 2025-01-09 17:12 | XMS_ITS | Encounter Summary ---
Author Organization [facility] Address [address] [place] [address] Care Team Providers Care Mechanical Applications Engineer Name Role Phone Christos Estrada MD Primary Care Provider [phone] Encounter Details Date Type Department Care Team (Late st Contact Info) Description 07/22/2001 Outpatient Historical [facility] Primary Care Internal Medicine [address] [place] [phone] Rich Dorado DO NO ADDRESS ON FILE Social History Tobacco Use Types Packs/Day Years Used Date Smoking Tobacco: Never Assessed Sex and Gender Information Value Date Recorded Sex Assigned at Not on file Legal Sex Male 3:02 AM LICSW Gender Identity Not on file Sexual Orientation Not on file documented as of this encounter Plan of Treatment Not on file documented as of this encounter Visit Diagnoses Not on filedocumented in this encounter Additional Health Concerns Infection Onset Date Last Indicated Resolved Time R/O COVID-19 10/29/2020 10/29/2020 10/29/2020 6:43 AM CDT documented as of this encounter Care Teams Mechanical Applications Engineer Relationship Specialty Start Date End Date Christos Estrada MD [address] [place] [phone] PCP - General Family Practice 07/01/23 documented as of this encounter
--- OUTSIDE RECORDS SUMMARY | 2025-01-09 17:12 | XMS_ITS | Encounter Summary ---
Author Organization [facility] Address [address] [place] [address] Care Team Providers Care Pin Attacher Name Role Phone Christos Estrada MD Primary Care Provider [phone] Encounter Details Date Type Department Care Team (Late st Contact Info) Description 10/23/2000 Outpatient Historical [facility] Primary Care Internal Medicine [address] [address] Celso Burnett MD [address] [place] [phone] Social History Tobacco Use Types Packs/Day Years Used Date Smoking Tobacco: Never Assessed Sex and Gender Information Value Date Recorded Sex Assigned at Not on file Legal Sex Male 3:02 AM WIRER Gender Identity Not on file Sexual Orientation Not on file documented as of this encounter Plan of Treatment Not on file documented as of this encounter Visit Diagnoses Not on filedocumented in this encounter Additional Health Concerns Infection Onset Date Last Indicated Resolved Time R/O COVID-19 10/29/2020 10/29/2020 10/29/2020 6:43 AM CDT documented as of this encounter Care Teams Pin Attacher Relationship Specialty Start Date End Date Christos Estrada MD [address] [place] [phone] PCP - General Family Practice 07/01/23 documented as of this encounter
--- OUTSIDE RECORDS SUMMARY | 2025-01-09 17:12 | XMS_ITS | Data Portability ---
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 Chicken pox: Patient denies history of chicken pox Marital status: - Sexually active: no Occupation: disabledHighest level of education: 8th grade Allergies: ASAEL MARTIN Attn: Accounting, [facility], [place], [address], [facility] 09/15/2024 17:04:11
--- OUTSIDE RECORDS SUMMARY | 2025-01-09 17:12 | XMS_ITS | Encounter Summary ---
Author Organization [facility] Address [address] [place] [address] Care Team Providers Care High Man Name Role Phone Christos Estrada MD Primary Care Provider [phone] Encounter Details Date Type Department Care Team (Late st Contact Info) Description 01/02/2003 Outpatient Historical [facility] Primary Care Internal Medicine 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
--- OUTSIDE RECORDS SUMMARY | 2025-01-09 17:12 | XMS_ITS | Encounter Summary ---
Author Organization [employer] Address 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
--- OUTSIDE RECORDS SUMMARY | 2025-01-09 17:12 | XMS_ITS | Encounter Summary ---
Author Organization [employer] [facility] Address [address] [place] [address] Care Team Providers Care Bead Worker Sewing Name Role Phone Christos Estrada MD Primary Care Provider [phone] Encounter Details Date Type Department Care Team (Latest Contact Info) Description 10/18/2000 Outpatient Historical [facility] Antoine Garnica MD [address] [place] [address] Emergency Dept [place], [place] [id number] Open wound of hip and thigh, without mention of complication (Primary Dx) Social History Tobacco Use Types Packs/Day Years Used Date Smoking Tobacco: Never Assessed Sex and Gender Information Value Date Recorded Sex Assigned at Not on file Legal 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
--- OUTSIDE RECORDS SUMMARY | 2025-01-09 17:12 | XMS_ITS | Encounter Summary ---
Author Organization [facility] Address [address] [place] [address] Care Team Providers Care Ventilating Equipment Installer Name Role Phone Christos Estrada MD Primary Care Provider [phone] Encounter Details Date Type Department Care Team (Late st Contact Info) Description 08/24/2000 Outpatient Historical [facility] Primary Care Internal Medicine 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
--- OUTSIDE RECORDS SUMMARY | 2025-01-09 18:36 | XMS_ITS | Encounter Summary ---
Author Organization [facility] Address [address] [place] [address] Care Team Providers Care Property Utilization Officer Name Role Phone Christos Estrada MD Primary Care Provider [phone] Encounter Details Date Type Department Care Team (Late st Contact Info) Description 01/02/2003 Outpatient Historical [facility] Primary Care Internal Medicine [address] [place] [address] Rich Dorado DO NO ADDRESS ON FILE Social History Tobacco Use Types Packs/Day Years Used Date Smoking Tobacco: Never Assessed Sex and Gender Information Value Date Recorded Sex Assigned at Not on file Legal Sex Male 3:02 AM REHAB THERAPIST Gender Identity Not on file Sexual Orientation Not on file documented as of this encounter Plan of Treatment Not on file documented as of this encounter Visit Diagnoses Not on filedocumented in this encounter Additional Health Concerns Infection Onset Date Last Indicated Resolved Time R/O COVID-19 10/29/2020 10/29/2020 10/29/2020 6:43 AM CDT documented as of this encounter Care Teams Property Utilization Officer Relationship Specialty Start Date End Date Christos Estrada MD [address] [place] [phone] PCP - General Family Practice 07/01/23 documented as of this encounter
--- OUTSIDE RECORDS SUMMARY | 2025-01-09 18:37 | XMS_ITS | Encounter Summary ---
Author Organization [facility] Address [address] [place] [address] Care Team Providers Care Fourdrinier Machine Tender Name Role Phone Christos Estrada MD Primary Care Provider [phone] Encounter Details Date Type Department Care Team (Late st Contact Info) Description 10/23/2000 Outpatient Historical [facility] Primary Care Internal Medicine 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
--- OUTSIDE RECORDS SUMMARY | 2025-01-09 18:37 | XMS_ITS | Encounter Summary ---
Author Organization [facility] Address [address] [place] [address] Care Team Providers Care Acura Sales Consultant Name Role Phone Christos Estrada MD Primary Care Provider [phone] Encounter Details Date Type Department Care Team (Late st Contact Info) Description 08/06/2001 Outpatient Historical [facility] Primary Care Internal Medicine [address] [place] [address] Rich Dorado DO NO ADDRESS ON FILE Social History Tobacco Use Types Packs/Day Years Used Date Smoking Tobacco: Never Assessed Sex and Gender Information Value Date Recorded Sex Assigned at Not on file Legal Sex Male 3:02 AM LEASING AGENT Gender Identity Not on file Sexual Orientation Not on file documented as of this encounter Plan of Treatment Not on file documented as of this encounter Visit Diagnoses Not on filedocumented in this encounter Additional Health Concerns Infection Onset Date Last Indicated Resolved Time R/O COVID-19 10/29/2020 10/29/2020 10/29/2020 6:43 AM CDT documented as of this encounter Care Teams Acura Sales Consultant Relationship Specialty Start Date End Date Christos Estrada MD [address] [place] [phone] PCP - General Family Practice 07/01/23 documented as of this encounter
--- OUTSIDE RECORDS SUMMARY | 2025-01-09 18:37 | XMS_ITS | Encounter Summary ---
Author Organization [facility] Address [address] [place] [address] Care Team Providers Care Police Lieutenant Precinct Name Role Phone Christos Estrada MD Primary Care Provider [phone] Encounter Details Date Type Department Care Team (Late st Contact Info) Description 09/20/2002 Outpatient Historical [facility] Primary Care Internal Medicine 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
--- OUTSIDE RECORDS SUMMARY | 2025-01-09 18:37 | XMS_ITS | Encounter Summary ---
Author Organization [facility] Address [address] [place] [address] Care Team Providers Care Youth Counselor Name Role Phone Christos Estrada MD Primary Care Provider [phone] Encounter Details Date Type Department Care Team (Late st Contact Info) Description 07/22/2001 Outpatient Historical [facility] Primary Care Internal Medicine 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
--- OUTSIDE RECORDS SUMMARY | 2025-01-09 18:38 | XMS_ITS | Encounter Summary ---
Author Organization [facility] Address 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 BLOCK INSPECTOR Gender Identity Not on file Sexual Orientation Not on file documented as of this encounter Plan of Treatment Not on file documented as of this encounter Visit Diagnoses Not on filedocumented in this encounter Additional Health Concerns Infection Onset Date Last Indicated Resolved Time R/O COVID-19 10/29/2020 10/29/2020 10/29/2020 6:43 AM CDT documented as of this encounter Care Teams Harness Mender Relationship Specialty Start Date End Date Christos Estrada MD [address] [place] [phone] PCP - General Family Practice 07/01/23 documented as of this encounter
--- OUTSIDE RECORDS SUMMARY | 2025-01-09 18:38 | XMS_ITS | Encounter Summary ---
Author Organization [employer] Address 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
--- OUTSIDE RECORDS SUMMARY | 2025-01-09 18:38 | XMS_ITS | Encounter Summary ---
Author Organization [employer] [facility] Address [address] [place] [address] Care Team Providers Care Mutual Fund Accountant Name Role Phone Christos Estrada MD Primary Care Provider [phone] Encounter Details Date Type Department Care Team (Latest Contact Info) Description 10/18/2000 Outpatient Historical [facility] Antoine Garnica MD [address] [place] [address] Emergency Dept [place], [place] [phone] Open wound of hip and thigh, without mention of complication (Primary Dx) Social History Tobacco Use Types Packs/Day Years Used Date Smoking Tobacco: Never Assessed Sex and Gender Information Value Date Recorded Sex Assigned at Not on file Legal Sex Male 3: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
--- OUTSIDE RECORDS SUMMARY | 2025-01-09 18:38 | XMS_ITS | Encounter Summary ---
Author Organization [facility] Address 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 Gender Identity Not on file Sexual Orientation Not on file documented as of this encounter Plan of Treatment Not on file documented as of this encounter Visit Diagnoses Not on filedocumented in this encounter Additional Health Concerns Infection Onset Date Last Indicated Resolved Time R/O COVID-19 10/29/2020 10/29/2020 10/29/2020 6:43 AM CDT documented as of this encounter Care Teams Recyclable Materials Distributor Relationship Specialty Start Date End Date Christos Estrada MD [address] [place] [phone] PCP - General Family Practice 07/01/23 documented as of this encounter
--- OUTSIDE RECORDS SUMMARY | 2025-01-09 18:38 | XMS_ITS | Encounter Summary ---
Author Organization [facility] Address [address] [place] [address] Care Team Providers Care Manager Retail Store Name Role Phone Christos Estrada MD Primary Care Provider [phone] Encounter Details Date Type Department Care Team (Late st Contact Info) Description 08/24/2000 Outpatient Historical [facility] Primary Care Internal Medicine 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
--- OUTSIDE RECORDS SUMMARY | 2025-01-09 18:38 | XMS_ITS | Encounter Summary ---
Author Organization [facility] Address [address] [place] [address] Care Team Providers Care Development Coordinator Name Role Phone Christos Estrada MD Primary Care Provider [phone] Encounter Details Date Type Department Care Team (Late st Contact Info) Description 03/13/2000 Outpatient Historical [facility] Ramu Adkins Family history of diabetes mellitus (Primary Dx) Social History Tobacco Use Types Packs/Day Years Used Date Smoking Tobacco: Never Assessed Sex and Gender Information Value Date Recorded Sex Assigned at Not on file Legal Sex Male 3:02 AM FEED ADVISER Gender Identity Not on file Sexual Orientation [...] documented as of this encounter Care Teams Development Coordinator Relationship Specialty Start Date End Date Christos Estrada MD [address] [place] [phone] PCP - General Family Practice 07/01/23 documented as of this encounter
--- OUTSIDE RECORDS SUMMARY | 2025-01-09 18:38 | XMS_ITS | Encounter Summary ---
Author Organization [facility] Address [address] [place] [address] Care Team Providers Care Precision Lens Generator Name Role Phone Christos Estrada MD Primary Care Provider [phone] Encounter Details Date Type Department Care Team (Late st Contact Info) Description 05/06/2001 Outpatient Historical [facility] Primary Care Internal Medicine [address] [place] [phone] Rich Dorado DO NO ADDRESS ON FILE Social History Tobacco Use Types Packs/Day Years Used Date Smoking Tobacco: Never Assessed Sex and Gender Information Value Date Recorded Sex Assigned at Not on file Legal Sex Male 3:02 AM MAGNETIC LOCATER Gender Identity Not on file Sexual Orientation Not on file documented as of this encounter Plan of Treatment Not on file documented as of this encounter Visit Diagnoses Not on filedocumented in this encounter Additional Health Concerns Infection Onset Date Last Indicated Resolved Time R/O COVID-19 10/29/2020 10/29/2020 10/29/2020 6:43 AM CDT documented as of this encounter Care Teams Precision Lens Generator Relationship Specialty Start Date End Date Christos Estrada MD [address] [place] [phone] PCP - General Family Practice 07/01/23 documented as of this encounter
--- OUTSIDE RECORDS SUMMARY | 2025-01-09 18:38 | XMS_ITS | Encounter Summary ---
Author Organization [employer] Address [address] [place] [address] Care Team Providers Care 911 Emergency Dispatcher Name Role Phone Christos Estrada MD Primary Care Provider [phone] Encounter Details Date Type Department Care Team (Latest Contact Info) Description 09/27/1999 Outpatient Historical [facility] Josesito Gillis MD [address] [place] [address] Internal hemorrhoids with other complication (Primary Dx) Social History Tobacco Use Types Packs/Day Years Used Date Smoking Tobacco: Never Assessed Sex and Gender Information Value Date Recorded Sex Assigned at Not on file Legal Sex Male 3: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
--- OUTSIDE RECORDS SUMMARY | 2025-01-09 18:38 | XMS_ITS | Encounter Summary ---
Author Organization [employer] Address [address] [place] [address] Care Team Providers Care Automated Process Operator Name Role Phone Christos Estrada MD Primary Care Provider [phone] Encounter Details Date Type Department Care Team (Latest Contact Info) Description 05/11/1999 Outpatient Historical [facility] Tristian Jones MD NO ADDRESS ON FILE Cervical spondylosis without myelopathy (Primary Dx) Social History Tobacco Use Types Packs/Day Years Used Date Smoking Tobacco: Never Assessed Sex and Gender Information Value Date Recorded Sex Assigned at Not on file Legal Sex Male 3:02 AM ASSAYER HELPER Gender Identity Not on file Sexual Orientation Not on file documented as of this encounter Plan of Treatment Not on file documented as of this encounter Visit Diagnoses Diagnosis Cervical spondylosis without myelopathy- Primary documented in this encounter Additional Health Concerns Infection Onset Date Last Indicated Resolved Time R/O COVID-19 10/29/2020 10/29/2020 10/29/2020 6:43 AM CDT documented as of this encounter Care Teams Automated Process Operator Relationship Specialty Start Date End Date Christos Estrada MD [address] [place] [phone] PCP - General Family Practice 07/01/23 documented as of this encounter
--- OUTSIDE RECORDS SUMMARY | 2025-01-09 18:38 | XMS_ITS | Encounter Summary ---
Author Organization [facility] Address [address] [place] [address] Care Team Providers Care Store Loss Prevention Manager Name Role Phone Christos Estrada MD Primary Care Provider [phone] Encounter Details Date Type Department Care Team (Late st Contact Info) Description 12/05/1998 Outpatient Historical [facility] [place] NO ADDRESS ON FILE Social History Tobacco Use Types Packs/Day Years Used Date Smoking Tobacco: Never Assessed Sex and Gender Information Value Date Recorded Sex Assigned at Not on file Legal Sex Male 3:02 AM RAILROAD PURCHASING AGENT Gender Identity Not on file Sexual Orientation Not on file documented as of this encounter Plan of Treatment Not on file documented as of this encounter Visit Diagnoses Not on filedocumented in this encounter Additional Health Concerns Infection Onset Date Last Indicated Resolved Time R/O COVID-19 10/29/2020 10/29/2020 10/29/2020 6:4 3 AM CDT documented as of this encounter Care Teams Store Loss Prevention Manager Relationship Specialty Start Date End Date Christos Estrada MD [address] [place] [phone] PCP - General Family Practice 07/01/23 documented as of this encounter
--- OUTSIDE RECORDS SUMMARY | 2025-01-09 18:38 | XMS_ITS | Encounter Summary ---
Author Organization [facility] Address [address] [place] [address] Care Team Providers Care Immigration Investigator Name Role Phone Christos Estrada MD Primary Care Provider [phone] Encounter Details Date Type Department Care Team (Late st Contact Info) Description 08/28/2000 Outpatient Historical [facility] Primary Care Internal Medicine [address] [address] Celso Burnett MD [address] [place] [phone] Social History Tobacco Use Types Packs/Day Years Used Date Smoking Tobacco: Never Assessed Sex and Gender Information Value Date Recorded Sex Assigned at Not on file Legal Sex Male 3:02 AM ASSOCIATE LOAN OFFICER Gender Identity Not on file Sexual Orientation Not on file documented as of this encounter Plan of Treatment Not on file documented as of this encounter Visit Diagnoses Not on filedocumented in this encounter Additional Health Concerns Infection Onset Date Last Indicated Resolved Time R/O COVID-19 10/29/2020 10/29/2020 10/29/2020 6:43 AM CDT documented as of this encounter Care Teams Immigration Investigator Relationship Specialty Start Date End Date Christos Estrada MD [address] [place] [phone] PCP - General Family Practice 07/01/23 documented as of this encounter
--- OUTSIDE RECORDS SUMMARY | 2025-01-09 18:38 | XMS_ITS | Clinical Summary ---
Author Organization [facility] Address [address] [place] [address] Phone Care Team Providers Care Community Affairs Director Name Role Phone Unavailable Primary Care Provider Unavailabl e Encounters Date Type Department Care Team Description 12/16/2024 [facility]phone [facility] [address] [place] [address] Moses Cochran APRN, CNP 10/27/2024 Telephone [facility] [address] [place] [address] Moses Cochran APRN, HEATH from Last 3 Months Social History Tobacco Use Types Packs/Day Years Used Date Smoking Tobacco: Never Assessed Sex and Gender Information Value Date Recorded Sex Assigned at Not on file 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
--- OUTSIDE RECORDS SUMMARY | 2025-01-09 18:39 | XMS_ITS | Clinical Summary ---
Author Organization [facility] Address [address] [place] [phone] Phone Care Team Providers Care Resident Buyer Name Role Phone Christos Estrada MD Primary Care Provider [phone] Allergies No known active allergies Medications aluminum [...] complication, without long-term current use of insulin ([facility]) take 1 tablet by mouth twice a day with meals 180 Tablet 2 04/08/20 24 Active Active Problems Patient Care Coordination No te Formatting of this note migh t be different from the original. 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 prescription opiate use 11/14/2022 07/01/2023 Calcified granuloma [...] COVID-19 VACCINE - EMERGENCY USE AUTHORIZATION, MRNA, [id number](PF) 30 MCG/0.3 ML IM SUSP 11/20/2020,10/30/2020 (PNEUMOVAX 23)(50 YRS UP) PN EUMOCOCCAL POLYSACCHARIDE (PPV23) 0.5 ML, IM 06/16/2019 (PREVNAR 20)(6 WKS UP) PNEUM OCOCCAL CONJUGATE VACCINE 20-VALENT (PCV20), POLYSACCHARIDE [id number] CONJUGATE, ADJUVANT 0.5 ML (PF) IM 12/18/2022 [...] on file 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 Gender Identity Not on file Sexual Orientation Not on file Occupation Industry Job Start Date Job End Date disabled, strokes Not on file Not on file Not on 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) HM DIABETES EYE EXAM Routine 02/24/2023 2:14 PM CDT from Last 3 Months or Most Recently Relevant to Health Maintenance Results * (ABNORMAL) HEMOGLOBIN A1C (12/28/2023 11:44 AM CDT) HEMOGLOBIN A1C 6.7(H) <5.7 % of total Hgb [facility] Comment: For someone without known diabetes, [...] children. ESTIMATED AVERAGE GLUCOSE (MG/DL) 146 mg/dL [facility] ESTIMATED AVERAGE GLUCOSE (MMOL/L) 8.1 mmol/L [facility] Comment: This test was performed on the Waylon jonathon c503 platform. Effective 10/12/23, a change in test platforms from the Marin Lead Injection Mold Technician to the Waylon jonathon c503 may have shifted HbA1c results compared to historical results. Based on laboratory validation testing conducted at [facility], the Waylon platform relative to the Marin [...] platforms is not recommended. Test Performed at: [facility] [address] [place] [phone] Arielle Kristie Vo Blood 12/28/2023 11:4 4 AM CDT 12/29/2023 2:16 AM CDT us Myriam STOKES CHEMISTRY ORDERABLES Final Re sult [facility] [phone] [facility] [address] [place] [phone] * LIPID PANEL (12/28/2023 11:44 AM CDT) CHOLESTEROL 137 <200 mg/dL [facility] HDL 44 > OR = 40 mg/dL Radha [facility] T[facility] TRIGLYCERIDE 92 <150 mg/dL Radha Toussaint LDL CALCULATED 75 mg/dL (calc) [facility]aint Comment: Reference range: <100 Desirable range <100 mg/dL for primary prevention; <70 mg/dL for patients with CHD or diabetic patients with > or = 2 CHD risk factors. LDL-C is now calculated using the Nicole calculation, which is a validated novel method providing better accuracy than the Friedewald equation in the estimation of LDL-C. Obi BAIRES et al. COLEEN. 2013;310(09): 8842-9300 (http://education.Eightfold Logic/faq/THH546) CHOL/HDL RATIO 3.1 <5.0 (calc) [facility] goldstein Norbert NON-HDL CHOLESTEROL 93 <130 mg/dL (calc) [facility] triston Toussaint Comment: For patients with diabetes plus 1 major ASCVD risk factor, treating to a non-HDL-C goal of <100 mg/dL (LDL-C of <70 mg/dL) is considered a therapeutic option. Test Performed at: [place] [address] [place] [address] [facility] Blood 12/28/2023 11:4 4 AM CDT 12/29/2023 2:16 AM CDT Myriam STOKES CHEMISTRY ORDERABLES Final Re sult [facility] [phone] [place] [address] [place] [phone] * COLONOSCOPY REPORT (10/09/2023 9:28 AM CDT) Narrative Procedure Note Ángel Mitchell MD - 10/09/2023 9:28 AM CDT [facility] GI Patient Name: Albert Evans Procedure Date: [...] MICROALBUMIN/CREATININE RATIO, RANDOM UR (09/04/2023 9:57 AM WINDOWS VMWARE ADMINISTRATOR) Creatinine, Urine 135 20 - 320 mg/dL [...] within a diagnostic category. Test Performed at: [facility] [address] [place] [address] Arielle Gill MD Urine URINE SPECIMEN OBTAINED BY CLEAN CATCH PROCEDURE / Unknown 09/04/2023 9:57 AM WINDOWS VMWARE ADMINISTRATOR 09/05/2023 4:54 AM WINDOWS VMWARE ADMINISTRATOR us Christos Estrada MD URINE ORDERABLES Final Result [facility] [phone] [facility] [address] [place] [address] * DIABETES EYE EXAM (02/24/2023 2:14 PM CDT) us Abstract Provider HEALTH MAINTENANCE Edited Resu lt - Final [facility] CLIA# [id number] [address] [place] [phone] from Last 3 Months or Most Recently Relevant to Health Maintenance Insurance [place]ID [place] [facility] [id number] RX OPT[employer] RX Member Subscriber Plan / Payer (Ef fective 2022-Present) Name:Albert Evans Relation to Subscriber:Self Name:Albert Evans Subscriber ID:Not on file Payer ID:Not on file Group ID:[id number] Type:RX Medicare Part D Address: [address] [place] Advance Directives For more information, please contact: [phone] * Full Code (Latest Code Status on [...] 9:06 AM 12/15/2019 2:19 PM Care Teams Resident Buyer Relationship Specialty Start Date End Date Christos Estrada MD [address] [place] [phone] PCP - General Family Practice 07/01/23
[2025-01-09] MEDS: ACETAMINOPHEN 500 MG TABLET 1000 MG PO (18:41)
--- NOTE | 2025-01-09 18:41 | ED_ITS ---
HPI - Extremity Injury (Upper) General Chief Complaint: Extremity Injury, Upper Stated Complaint: multiple falls Time Seen by Provider: 01/09/25 18:21 Source: patient Mode of arrival: ambulatory Limitations: no limitations History of Present Illness HPI narrative: This is a 64 year old male that presents to the ER after a fall with left elbow pain. Reports he has had a couple of mechanical falls while trying to clean out a family home. He has history of left sided weakness due to previous CVA. Reports injury to the left elbow, left hand and left hip. He did not hit his head or lose consciousness. Denies new numbness or weakness. Related Data Home Medications ?Medication ?Instructions ?Recorded ?Confirmed ?Last Taken ?Type aspirin 81 mg chewable tablet 81 mg PO DAILY 03/16/23 10/27/24 Unknown History (Jaya Chewable Low Dose Aspirin) metformin 1,000 mg tablet 1,000 mg PO BID 09/29/24 10/27/24 Unknown History Allergies Allergy/AdvReac Type Severity Reaction Status Date / Time No Known Allergies Allergy Verified 01/09/25 18:16 Review of Systems Review of Systems: All systems reviewed & are unremarkable except as noted in HPI and below PMFSH Past Medical History Medical History Cerebrovascular accident Myocardial infarction Diabetes Surgical History Surgical History H/O right inguinal hernia repair as a baby History of transurethral resection of prostate 2020 Family History Family History Mother Diabetes mellitus Social History Social History Smoking status: Current every day smoker Tobacco type: cigarettes Additional smoking assessment comments: 1/2 pack a day Alcohol intake: former Substance use: former Substance use type: former substance user and crack/cocaine Lack of Transportation: No Lack of Food: Sometimes True Current Housing: I Have Housing Concerned About Future Housing: No Difficulty Paying Gas/Electric Bills: No Difficulty Paying for Meds: No Currently Unemployed: Decline to Answer Education: High School Diploma/GED Difficulty w/ Childcare or Family Care: Decline to Answer Living arrangements: with family Additional living arrangements comments: Staying with his Mother, currently working on divorce with estranged Exam Narrative: GENERAL: Well-appearing, well-nourished, and in no acute distress. HEAD: Normocephalic, atraumatic. EYES: EOMI. CHEST: No respiratory distress. HEART: Regular rate EXTREMITIES: Normal range of motion. No edema or obvious deformity. Normal radial and DP pulses SKIN: Warm, dry, no rash. NEURO: No focal deficits. Alert and oriented x3. PSYCH: Normal mood and affect Course Course Emergency Course: patient updated on his workup and agrees with plan of care Vital Signs Vital signs: Vital Signs Temperature 98.7 F 01/09/25 16:47 Pulse Rate 85 01/09/25 16:47 Respiratory Rate 18 01/09/25 16:47 Blood Pressure 144/82 H 01/09/25 16:47 Pulse Oximetry 97 01/09/25 16:47 Oxygen Delivery Room Air 01/09/25 16:47 Temperature 98.7 F 01/09/25 16:47 Pulse Rate 85 01/09/25 16:47 Respiratory Rate 18 01/09/25 16:47 Blood Pressure 144/82 H 01/09/25 16:47 Pulse Oximetry 97 01/09/25 16:47 Oxygen Delivery Room Air 01/09/25 16:47 MDM - Extremity Injury (Upper) MDM Narrative Medical decision making narrative: Patient presents to the emergency department after a couple of mechanical falls with left elbow, left hand, left hip pain. He is neurovascularly intact. Left hand, elbow x-rays without acute osseous abnormalities. Left hip/pelvic x-rays without acute osseous abnormalities. Patient placed in a sling for comfort. Instructed to rest, ice and take [id number] pain medication as needed. He is to follow up with primary provider. He was given warnings to return to the ER Differential Diagnosis Differential diagnosis: Likely sprain and strain of wrist, fracture of wrist, fracture of hand and other (elbow sprain, elbow fracture, contusion) Imaging Data Radiologist's impression: ITS Impressions Elbow X-Ray 01/09/25 19:12 IMPRESSION: Limited evaluation of the left elbow secondary to the lack of adequacy of the lateral view is without acute displaced fracture, as detailed above. Hand X-Ray 01/09/25 19:42 IMPRESSION: Degenerative disease without acute fracture or dislocation within the left hand, as detailed above. Hip/Pelvis X-Ray 01/09/25 19:44 IMPRESSION: Degenerative disease without acute fracture or dislocation Elbow X-Ray 01/09/25 19:50 IMPRESSION: Left elbow joint effusion, as detailed above. No acute displaced fracture. Critical Care Time Critical Care Time Critical Care Time: No Discharge Plan Discharge Clinical Impression: Fall, Left elbow pain Patient Disposition: Home Condition: Stable Instructions: Elbow Sprain (ED) Additional Instructions: Return to the ER if you experience fever, redness and swelling of your extremity, numbness or any other symptoms that are concerning to you Wear sling. No weight on the affected extremity. Ice and elevate extremity. Pain medication as needed and directed. Follow up with your doctor for further care. Patient Language: Polish Prescriptions: No Action metformin 1,000 mg tablet 1,000 mg PO BID (DME) blood-glucose meter [OneTouch Verio Flex Start] Kit See Rx Instructions .Route Qty: 1 0RF Rx Instructions: two times daily (DME) OneTouch Verio test strips Strip See Rx Instructions .Route Qty: 100 5RF Rx Instructions: two times daily (DME) Easy Touch Safety Lancets 32 gauge misc See Rx Instructions .Route Qty: 100 5RF Rx Instructions: two times daily aspirin [Jaya Chewable Aspirin] 81 mg tablet,chewable 81 mg PO DAILY omeprazole 20 mg capsule,delayed release(DR/EC) 20 mg PO DAILY Qty: 90 3RF trazodone 50 mg tablet 50 mg PO QHS PRN (Reason: insomnia) Qty: 90 2RF duloxetine 60 mg capsule,delayed release(DR/EC) 60 mg PO DAILY Qty: 90 1RF tizanidine 4 mg capsule 4 mg PO BID PRN (Reason: muscle spasticity) Qty: 60 1RF atorvastatin 40 mg tablet See Rx Instructions .ROUTE .COMPLEX Qty: 90 1RF Dose Instruction: TAKE 1 TABLET BY MOUTH EVERY DAY Rx Instructions: TAKE 1 TABLET BY MOUTH EVERY DAY tizanidine 4 mg tablet 4 mg PO DAILY Qty: 90 1RF metoprolol succinate 50 mg tablet extended release 24 hr 50 mg PO DAILY Qty: 90 3RF Follow-up/Referrals: Bruce Cesar MD [Primary Care Provider] -
== END 2025-01-09 20:58 | disposition home or self-care (01) ==
PROVIDERS: Emergency Provider Physician Assistant; PCP Family Medicine Adolescent Medicine
DX: S59.902A Unspecified injury of left elbow, initial encounter (principal); I25.2 Old myocardial infarction; I69.954 Hemiplegia and hemiparesis following unspecified cerebrovascular disease affecting left non-dominant side; E11.9 Type 2 diabetes mellitus without complications; F17.210 Nicotine dependence, cigarettes, uncomplicated; M16.12 Unilateral primary osteoarthritis, left hip; Z79.84 Long term (current) use of oral hypoglycemic drugs; Z79.899 Other long term (current) drug therapy; W19.XXXA Unspecified fall, initial encounter
CPT/HCPCS: 73070; 73080; 73130; 73502; 99284; A4565; A9270